=== PATIENT | female | born 1955 | race Caucasian/White ===

== ENCOUNTER 2018-10-13 17:41 | Inpatient (IN) ==
[2018-10-13] MEDS ORDERED: DiphenhydrAMINE HCL 50 MG/ML VIAL IV STA ×2 (18:41→21:51)
[2018-10-13 19:00] LABS: Basophils # (auto) 0.01 K/uL (0-0.2); Basophils % (auto) 0.1 %; Eosinophils # (auto) 0.15 K/uL (0-0.5); Eosinophils % (auto) 1.9 %; Hematocrit (blood only) 29.4 % (37-47); Hemoglobin 9.5 g/dL (12.0-16.0); Immature Granulocytes # (auto) 0.02 K/uL (0.00-0.02); Immature Granulocytes % (auto) 0.3 %; Lymphocytes % (auto) 20.2 %; Mean Corpuscular Hgb Conc 32.3 g/dL (32-36); Mean Corpuscular Volume 89.4 fL (80-100); Mean Platelet Volume 7.5 fL (7.4-10.4); Monocytes # (auto) 0.25 K/uL (0.11-0.59); Monocytes % (auto) 3.2 %; Neutrophils # (auto) 5.89 K/uL (1.4-6.5); Neutrophils % (auto) 74.3 %; Platelet Count 466 K/uL (130-400); RDW Coefficient of Variation 14.1 % (11.5-14.5); Red Blood Count 3.29 M/uL (4.2-5.4); White Blood Count 7.92 K/uL (4.8-10.8)
[2018-10-13] MEDS ORDERED: FAMOTIDINE 20MG IV PUSH 20 MG/5 ML SYR IV STA (19:14)
[2018-10-13 19:16] LABS: BUN Creatinine Ratio 16.3 (10-20); Calcium 8.5 mg/dl (8.5-10.1); Creatinine Clr Calc Pharmacy 75.2 ml/min; Est GFR (African American) 95.4; Est GFR (Non-African American) 82.3; Potassium 3.2 mmol/L (3.5-5.1)
--- NOTE | 2018-10-13 19:25 | Emergency Department Note ---
History of Present Illness General Chief complaint: Allergic Reaction Stated complaint: ALLERGIC REACTION TO ANTIBIOTIC Time Seen by Provider: 10/13/18 18:24 History of Present Illness Maximum Pain Intensity: 4 This patient is a 63-year-old female presents to the emergency department comp laining of hives all over her face, chest and shoulders that she woke up with this morning. The patient had a bilateral knee replacement performed on September 27. She developed a cellulitis postoperatively. The patient initially was put on cefadroxil. She developed an allergic reaction with hives and facial swelling. She was then switched to Cipro. After having several doses of the Cipro, the hives return. She was seen in the emergency department here at [facility] on 10/11 for the same complaint. The case was discussed with orthopedics. She was treated with steroids, Benadryl and Pepcid with moderate symptomatic relief. She was discharged home on clindamycin and Bactrim. She has had 2 doses of the clindamycin, and woke up with hives this morning. She has not taken the Bactrim. She denies any shortness of breath or difficulty swallowing. Home Medications Home Medications Medication Instructions Recorded Confirmed Type albuterol sulfate 0 mg INHALATION Q4H PRN 10/11/18 10/13/18 History albuterol sulfate [Ventolin HFA] 1 puff INHALATION Q6H PRN 10/11/18 10/13/18 History aspirin 81 mg PO BID 10/11/18 10/13/18 History bupropion HCl 300 mg PO QAM 10/11/18 10/13/18 History escitalopram oxalate 20 mg PO QAM 10/11/18 10/13/18 History famotidine 20 mg PO BID 10/11/18 10/13/18 History gabapentin 600 mg PO TID 10/11/18 10/13/18 History hydrocodone-acetaminophen 1 tab PO Q4H PRN 10/11/18 10/13/18 History latanoprost 1 drp OPB HS 10/11/18 10/13/18 History levothyroxine 125 mcg PO QAM 10/11/18 10/13/18 History meloxicam 15 mg PO .HOLD PRN 10/11/18 10/13/18 History oxycodone 5 mg PO .Q4-6HRS PRN 10/11/18 10/13/18 History ranitidine HCl 300 mg PO BID 10/11/18 10/13/18 History citalopram 20 mg PO QAM 10/13/18 10/13/18 History fluticasone propionate 2 spray INTRANASAL DAILY 10/13/18 10/13/18 History Allergies Allergy/AdvReac Type Severity Reaction Status Date / Time ciprofloxacin [From Cipro] Allergy Intermediate Hives Verified 10/13/18 22:25 hydromorphone Allergy Intermediate Rash and Verified 10/13/18 22:25 itchiness meprobamate Allergy Intermediate HIVES Verified 10/13/18 22:25 omeprazole Allergy Intermediate SORES IN Verified 10/13/18 22:25 MOUTH bacitracin Allergy Unknown ITCHY, RASH Verified 10/13/18 22:25 codeine AdvReac Intermediate NAUSEA/VOMI Verified 10/13/18 22:25 TING Past Med/Surg History Medical History Lymphoma No significant active problems No significant family history Surgical History S/P cholecystectomy S/p total knee replacement, bilateral Social History Feels Safe at Home: Yes Smoking Status: Former smoker Review of Systems A total of 10 systems reviewed and were otherwise negative Physical Exam Vital Signs Vital Signs - 24 hr 10/13/18 18:00 10/13/18 20:30 10/13/18 21:48 Temperature 37.5 C Temperature Source Oral Sepsis Recent Fever Within 48 Hours No Sepsis New/Unexplained Change in Mental Status No Sepsis Action Taken by Nursing No Action Required Pulse Rate 100 H Pulse Rate [Right Finger] 98 H 91 H Respiratory Rate 20 18 18 Respiratory Effort / Characteristics Non-Labored Spontaneous Non-Labored Respiratory Depth Normal Normal Respiratory Pattern Regular Blood Pressure 132/71 Blood Pressure [Left Arm] 140/80 122/66 Blood Pressure Mean 91 Blood Pressure Mean [Left Arm] 100 84 Blood Pressure Position Sitting Pulse Oximetry 97 95 95 Oxygen Delivery Method Room Air Constitutional WD/WN, vitals as above Eyes EOM intact bilaterally ENMT external ear and nose normal, oropharynx normal No lesions in the oral mucosa. Airway patent. Uvula midline. Neck trachea midline No stridor Respiratory normal respiratory effort, lungs clear to auscultation Cardiovascular RRR, no murmur, no edema Gastrointestinal (Abdomen) normal bowel sounds, soft, nontender, no hepatosplenomegaly Musculoskeletal Erythema and edema noted particularly to the right knee. Incision appears to be intact. No purulent drainage. Skin no rashes, warm and dry Extensive erythematous, blanching, urticaria noted particularly to the trunk, posterior neck and to a lesser extent the extremities. Neurologic Alert and oriented x3. No focal motor deficits. Psychiatric Acting appropriately Course Patient was seen and examined Vital signs including blood pressure were reviewed medications list was verified with patient Labs were obtained, and a saline lock was established Benadryl 25 mg IV and Solu-Medrol 125 mg IV were ordered. She was also put on a monitor. Pepcid 20 mg IV ordered. The case was discussed with my supervising physician who is in agreement with my plan She was ordered vancomycin IV On reassessment, the patient did not feel any relief. She was ordered an additional dose of Benadryl 25 mg IV. [facility] the patient for possible inpatient management. The patient and the patient's were in agreement with the plan. Consultations [facility] Sodium Chloride (Nss 1000ml) 1,000 mls @ 75 mls/hr IV .[id number] KAYLEN Stop: 11/13/18 00:01 Last Admin: 10/14/18 00:44 Dose: 75 mls/hr Documented by: [id number] Discontinued Medications Cetirizine HCl (Zyrtec) 10 mg PO NOW ONE Stop: 10/14/18 00:03 Last Admin: 10/14/18 00:52 Dose: 10 mg Documented by: [id number] Diphenhydramine HCl (Benadryl) 25 mg IV NOW STA Stop: 10/13/18 18:42 Last Admin: 10/13/18 19:03 Dose: 25 mg Documented by: [id number] Diphenhydramine HCl (Benadryl) 25 mg IV NOW STA Stop: 10/13/18 21:52 Last Admin: 10/13/18 22:21 Dose: 25 mg Documented by: [id number] Famotidine (Pepcid 20mg Iv Push) 20 mg in 5 mls @ 2.5 mls/min IV NOW STA Stop: 10/13/18 19:15 Last Admin: 10/13/18 19:28 Dose: 2.5 mls/min Documented by: [id number] Vancomycin HCl 1,750 mg/ (Sodium Chloride) 535 mls @ 200 mls/hr IV NOW ONE; Protocol Stop: 10/14/18 00:07 Last Admin: 10/13/18 22:32 Dose: 200 mls/hr Documented by: [id number] Methylprednisolone (Solumedrol) 125 mg IV NOW STA Stop: 10/13/18 20:11 Last Admin: 10/13/18 20:18 Dose: 125 mg Documented by: [id number] Medical Decision Making Medical Records Attestation: I reviewed the patient's medical records. Home Medications Current Medication List: was personally reviewed by me Laboratory Data Attestation: I reviewed the patient's lab results. Result diagrams: 10/13/18 18:47 10/13/18 18:47 Lab Results 10/13/18 10/13/18 Range/Units 18:47 18:47 WBC 7.92 (4.8-10.8) K/uL RBC 3.29 L (4.2-5.4) M/uL Hgb 9.5 L (12.0-16.0) g/dL Hct 29.4 L (37-47) % MCV 89.4 (80-100) fL MCH 28.9 (25-34) pg MCHC 32.3 (32-36) g/dL RDW Std Deviation 46.0 (36.4-46.3) fL RDW Coeff of Aba 14.1 (11.5-14.5) % Plt Count 466 H (130-400) K/uL MPV 7.5 (7.4-10.4) fL Immature Gran % (Auto) 0.3 % Neut % (Auto) 74.3 % Lymph % (Auto) 20.2 % [place] % (Auto) 3.2 % Eos % (Auto) 1.9 % Baso % (Auto) 0.1 % Immature Gran # (Auto) 0.02 (0.00-0.02) K/uL Neut # (Auto) 5.89 (1.4-6.5) K/uL Lymph # (Auto) 1.60 (1.2-3.4) K/uL Independence # (Auto) 0.25 (0.11-0.59) K/uL Eos # (Auto) 0.15 (0-0.5) K/uL Baso # (Auto) 0.01 (0-0.2) K/uL Sodium 142 (136-145) mmol/L Potassium 3.2 L (3.5-5.1) mmol/L Chloride 108 H (98-107) mmol/L Carbon Dioxide 29 (21-32) mmol/L Anion Gap 5.0 (3-11) BUN 12 (7-18) mg/dl Creatinine 0.76 (0.6-1.2) mg/dl Est Cr Clr Drug Dosing 75.2 ml/min Est GFR ( Amer) 95.4 Est GFR (Non-Af Amer) 82.3 BUN/Creatinine Ratio 16.3 (10-20) Glucose 87 (70-99) mg/dl Calcium 8.5 (8.5-10.1) mg/dl Blood Pressure Blood Pressure Findings: Elevated blood pressure MDM Narrative Differential diagnosis: Adverse versus allergic reaction, angioedema, anaphylaxis, infectious etiology, sepsis, among other This patient is a 63-year-old female presents the emergency department with an allergic type reaction that started today. On exam, her vitals were stable. Airway patent without any stridor or wheezing. As noted above, she has had a similar reaction to cephalosporins, Cipro and now clindamycin. At this point, it is felt that her outpatient p.o. antibiotic choices are fairly limited. Also, she had no relief with the medical management in the emergency department. For these reasons, it was felt that hospitalist consultation was warranted. The patient was in agreement. Impression & Plan Allergic reaction Discharge Plan Visit Data *Final* Discharge Date/Time: 10/13/18 23:41 Chief Complaint: Allergic Reaction Stated Complaint: ALLERGIC REACTION TO ANTIBIOTIC ED Provider: Quinton Chatman ED Midlevel Provider: Sandra Ramírez Discharge Problem: Allergic reaction Patient Disposition: Admitted As Inpatient Discharge Instructions Interventions: ED Discharge Assessment Last Done: 10/13/18 23:41 Discharge Problem: Allergic reaction Qualifiers: Encounter type: subsequent encounter Qualified Code(s): T78.40XD - Allergy, unspecified, subsequent encounter
[2018-10-13] MEDS ORDERED: methylPREDNISolone 125 MG/2 ML VIAL IV STA (20:10)
[2018-10-13] MEDS ORDERED: VANCOMYCIN HCL 1,750 MG in SODIUM CHLORIDE 0.9% 500 ML IV ONE (21:27)
[2018-10-13] MEDS ORDERED: VANCOMYCIN CONSULT ACTIVE PRN (21:27)
--- NOTE | 2018-10-13 21:41 | Emergency Department Note ---
ED Visit Note The patient was seen and examined with Sandra Ramírez PA-C. I agree with the history, physical and findings. Please see the note for disposition and details. The patient has had allergic type reaction to cephalosporin, quinolones, and clindamycin. Despite treatment for this reaction she still is symptomatic. She needs antibiotics due to the infection in her right knee wound. IV vancomycin was ordered. [facility]. .
--- NOTE | 2018-10-13 23:57 | History and Physical Report ---
DATE OF ADMISSION: 10/13/2018 CHIEF COMPLAINT: Allergic reaction. HISTORY OF PRESENT ILLNESS: This is a 63-year-old female with past medical history significant for follicular lymphoma, in remission, hypothyroidism, history of chronic rhinitis, esophagitis, osteoarthritis, cervical spine degeneration, depression, who recently had bilateral knee surgery, comes with allergic reaction. The patient had bilateral total knee replacement done on September [address] Graf at orthopedic surgery in [place]. The patient was prescribed cephalosporins for right knee cellulitis and she developed rash and she was switched to Cipro. She took Cipro for 4 days and she developed again rash and lip swelling and came to the ER on October 11, she was treated with steroids, Benadryl and famotidine and ER physician talked to the orthopedic doctor and was prescribed clindamycin and Bactrim and discharged to follow with orthopedics, and she did not took Bactrim, but with couple dose of clindamycin, developed again hives on the face, neck, itching and she came to the ER today, again received Solu-Medrol, Benadryl and famotidine, symptoms are improving. Cellulitis of right knee is improving. Because of multiple allergies, IV vancomycin was started in the ER. The patient is resting comfortable and hemodynamically stable. She says since last 1 week she has subjective fevers in the nighttime, she occasionally gets night sweats. She says her lymphoma is in remission. Denies any headache, no dizziness. No blurred visions. No earache, no runny nose, no sore throat, no difficulty swallowing. No nausea, no vomiting, no abdominal pain, no chest pain, no shortness of breath. No cough. She is constipated. No blood in the stools, no black stools. No burning, micturition or hematuria. No swelling of the legs. Had some lip swelling but no swelling of the tongue. ALLERGIES: BACTRIM, CODEINE, MEPROBAMATE, OMEPRAZOLE, CEPHALOSPORIN, CIPROFLOXACIN, POSSIBLE CLINDAMYCIN. PAST MEDICAL HISTORY: As mentioned above. PAST SURGICAL HISTORY: Colonoscopy, EGD with biopsy, EGD with endoscopic ultrasound, laparoscopic biopsy of intra-abdominal lymph node, laparoscopic cholecystectomy, laparoscopic mesenteric lymph node biopsy, appendectomy, removal of ovary ducts, tonsillectomy, total abdominal hysterectomy with removal of tubes. MEDICATIONS: The patient is on latanoprost 0.005% ophthalmic solution 1 drop in each eye at bedtime, gabapentin 600 mg p.o. t.i.d., Zantac 300 mg p.o. b.i.d., meloxicam, Celexa 20 mg p.o. daily, multivitamins 1 tablet daily, levothyroxine 112 mcg daily, Wellbutrin XL 300 mg p.o. daily, albuterol nebs q. 4 hours p.r.n. FAMILY HISTORY: Significant for father has squamous cell cancer of throat, heart disorder, hypertension, stroke. Mother has diabetes, hypertension. SOCIAL HISTORY: No smoking history. Alcohol rarely. No drug use. , lives with her . REVIEW OF SYMPTOMS: As per HPI. Rest of review of systems negative. PHYSICAL EXAMINATION: GENERAL: The patient is of moderate build, not in acute distress. VITAL SIGNS: Temperature 37.5, pulse 91, respiratory rate 18, blood pressure ____/66, oxygen 95% room air. HEENT: No pallor, no icterus. Pupils equal, round, and reactive to light. NECK: No JVD, no neck masses, no carotid bruit. CARDIOVASCULAR: S1, S2 heard, regular rate and rhythm, no murmur, no gallop. RESPIRATORY SYSTEM: Normal AP diameter. No wheezing, no crackles. ABDOMEN: Soft, bowel sounds present. Nontender, nondistended. CENTRAL NERVOUS SYSTEM: Cranial nerves II-XII grossly nonfocal. EXTREMITIES: Bilateral total knee replacement, right knee has some mild erythematous changes. LABORATORY DATA: WBC 7.9, hemoglobin 9.5, hematocrit 29.4, platelets 466. Sodium 142, potassium 3.2, chloride 108, bicarbonate 29, BUN 12, creatinine 0.7, serum glucose 87, calcium 8.5. ASSESSMENT AND PLAN: This is a 63-year-old female who presents with allergic reaction. 1. Allergic reaction: She is having multiple allergies with rash since starting on antibiotics for right knee cellulitis post knee arthoplasty. Initially treated with cephalosporin then ciprofloxacin, then clindamycin again e developed lip swelling and and hives in the face, neck and in the body, treated for allergic reaction with IV Solu-Medrol, IV Benadryl and IV Pepcid in the ER. We will continue with p.o. prednisone, Zyrtec and Pepcid and monitor on the Med/Surg tele. 2. Right knee cellulitis post bilateral total knee replacement, will consult orthopedics for further management and also ID for p.o. antibiotics on discharge if needed. 3. History of lymphoma follicular, in remission as per patient, follow with Heme/Onc. 4. History of hypothyroidism. Continue Synthroid. 5. History of depression. Continue home medications. 6. Deep venous thrombosis prophylaxis, sequential compression devices for now. 5. Disposition. Closely monitor in the Med/Surg tele. Level 1 full code. MTDD
[2018-10-14] MEDS ORDERED: ALBUTEROL 0.083% NEBU SOLN 3 ML VIAL NEB PRN (00:02)
[2018-10-14] MEDS ORDERED: CETIRIZINE HCL 10 MG TABLET PO ONE (00:02)
[2018-10-14] MEDS ORDERED: ONDANSETRON INJ 2 MG/ML 2 ML VIAL IV PRN (00:02)
[2018-10-14] MEDS: SODIUM CHLORIDE 0.9% 1000ML 1,000 ML IV SCH ×2 (00:44→13:35)
[2018-10-14] MEDS: ACETAMINOPHEN 325 MG TAB PO PRN (01:52)
[2018-10-14] MEDS ORDERED: PNEUMOCOCCAL ADMINISTRATION CHARGE ONE (04:30)
[2018-10-14] MEDS ORDERED: PNEUMOCOCCAL POLYSACCHARIDES 25 MCG/0.5 ML VIAL/SYR IM ONE (04:30)
[2018-10-14 05:31] LABS: Basophils # (auto) 0.01 K/uL (0-0.2); Basophils % (auto) 0.1 %; Eosinophils # (auto) 0.01 K/uL (0-0.5); Eosinophils % (auto) 0.1 %; Hematocrit (blood only) 29.7 % (37-47); Hemoglobin 9.5 g/dL (12.0-16.0); Immature Granulocytes # (auto) 0.03 K/uL (0.00-0.02); Immature Granulocytes % (auto) 0.3 %; Lymphocytes # (auto) 0.75 K/uL (1.2-3.4); Mean Corpuscular Volume 90.5 fL (80-100); Mean Platelet Volume 7.6 fL (7.4-10.4); Monocytes # (auto) 0.09 K/uL (0.11-0.59); Neutrophils # (auto) 8.45 K/uL (1.4-6.5); Neutrophils % (auto) 90.5 %; Platelet Count 491 K/uL (130-400); RDW Coefficient of Variation 14.2 % (11.5-14.5); Red Blood Count 3.28 M/uL (4.2-5.4); White Blood Count 9.34 K/uL (4.8-10.8)
[2018-10-14] MEDS: LEVOTHYROXINE SODIUM 125 MCG TABLET PO SCH (05:58)
[2018-10-14 06:06] LABS: BUN Creatinine Ratio 14.9 (10-20); Calcium 8.6 mg/dl (8.5-10.1); Creatinine Clr Calc Pharmacy 75.3 ml/min; Est GFR (African American) 95.4; Est GFR (Non-African American) 82.3; Magnesium 2.6 mg/dl (1.8-2.4); Potassium 3.9 mmol/L (3.5-5.1)
[2018-10-14] MEDS: ASPIRIN 81 MG ECTAB PO SCH ×2 (08:34→20:53)
[2018-10-14] MEDS: BuPROPion XL 300 MG TABCR PO SCH (08:34)
[2018-10-14] MEDS: FAMOTIDINE 20 MG TAB PO SCH ×2 (08:35→20:54)
[2018-10-14] MEDS: predniSONE 20 MG TAB PO SCH (08:35)
[2018-10-14] MEDS: GABAPENTIN 600 MG TAB PO SCH ×3 (08:36→20:54)
[2018-10-14] MEDS: FLUTICASONE PROPIONATE NA SPR 16 GM BTL SCH (08:37)
[2018-10-14] MEDS: CITALOPRAM 20 MG TAB PO SCH (08:37)
[2018-10-14] MEDS: HYDROCODONE/ACETAMOPHEN 5/325MG TAB PO PRN ×2 (08:42→16:17)
[2018-10-14] MEDS ORDERED: ESCITALOPRAM OXALATE 20 MG TAB PO SCH (09:00)
[2018-10-14] MEDS ORDERED: BuPROPion XL 300 MG TABCR PO SCH (09:00)
[2018-10-14] MEDS ORDERED: BuPROPion XL 150 MG TABCR PO SCH (09:00)
--- NOTE | 2018-10-14 10:23 | Infectious Disease Consult ---
Date of Consultation October 14, 2018 Assessment & Plan (1) Cellulitis of right leg: Patient with right leg cellulitis following knee surgery, responding to oral antibiotics but with allergic reaction to several different classes. For now, patient should be continued on IV vancomycin. Oral antibiotic choice is becoming limited and may require short course of home IV antibiotics. Will await cultures and follow. (2) Allergic reaction: History of Present Illness Reason for Consultation: Right knee cellulitis, multiple antibiotic allergies Attending Physician: Gerardo Sepulveda MD History of Present Illness 63-year-old female status post recent bilateral knee replacements, who developed evidence of right knee cellulitis recently, was given cefadroxil but developed diffuse erythematous pruritic rash. Was then placed on ciprofloxacin but then developed hives, changed to clindamycin but developed worsening large hives prompting return to the emergency room and admission to the hospital. She has been started on vancomycin, has tolerated so far, and rash is starting to resolve. She had fever and chills with her knee infection, but noted improvement while on oral antibiotics despite allergic reaction. Pain in knee minimal at present. Blood cultures are pending. Allergies Allergy/AdvReac Type Severity Reaction Status Date / Time ciprofloxacin [From Cipro] Allergy Intermediate Hives Verified 10/13/18 22:25 hydromorphone Allergy Intermediate Rash and Verified 10/13/18 22:25 itchiness meprobamate Allergy Intermediate HIVES Verified 10/13/18 22:25 omeprazole Allergy Intermediate SORES IN Verified 10/13/18 22:25 MOUTH bacitracin Allergy Unknown ITCHY, RASH Verified 10/13/18 22:25 codeine AdvReac Intermediate NAUSEA/VOMI Verified 10/13/18 22:25 TING Home Medications Home Medications Medication Instructions Recorded Confirmed Type albuterol sulfate 0 mg INHALATION Q4H PRN 10/11/18 10/13/18 History albuterol sulfate [Ventolin HFA] 1 puff INHALATION Q6H PRN 10/11/18 10/13/18 History aspirin 81 mg PO BID 10/11/18 10/13/18 History bupropion HCl 300 mg PO QAM 10/11/18 10/13/18 History famotidine 20 mg PO BID 10/11/18 10/13/18 History gabapentin 600 mg PO TID 10/11/18 10/13/18 History hydrocodone-acetaminophen 1 tab PO Q4H PRN 10/11/18 10/13/18 History latanoprost 1 drp OPB HS 10/11/18 10/13/18 History levothyroxine 125 mcg PO QAM 10/11/18 10/13/18 History meloxicam 15 mg PO .HOLD PRN 10/11/18 10/13/18 History oxycodone 5 mg PO .Q4-6HRS PRN 10/11/18 10/13/18 History ranitidine HCl 300 mg PO BID 10/11/18 10/13/18 History citalopram 20 mg PO QAM 10/13/18 10/13/18 History fluticasone propionate 2 spray INTRANASAL DAILY 10/13/18 10/13/18 History Patient History Medical History Lymphoma No significant active problems No significant family history Surgical History S/P cholecystectomy S/p total knee replacement, bilateral Social History Preferred Language: Urdu Communication Ability: Effective [employer] Distribution Center Required: Yes Beliefs That Will Affect Care: None Current Living Situation: Spouse Other Information That Helps Us Care for You: No Feels Safe at Home: Yes Safety Concerns: Feels Safe At This Time Smoking Status: Never smoker Hx Alcohol Use: No Hx Substance Use: No Review of Systems Review of Systems: All systems reviewed & are unremarkable except as noted in HPI & below Physical Exam Constitutional: WD/WN, vitals as above comfortable; no acute distress Eyes: PERRL, conjunctivae normal, anicteric sclerae ENMT: external ear and nose normal, oropharynx normal Neck: trachea midline, no thyromegaly neck nontender Respiratory: normal respiratory effort, lungs clear to auscultation normal percussion; does not use accessory muscles Cardiovascular: Rate/Rhythm: regular rate and regular rhythm Heart Sounds: normal S1 and normal S2; no gallop, no murmur and no cardiac rub Vessels: normal peripheral pulses; no JVD Gastrointestinal (Abdomen): normal bowel sounds, soft, nontender, no hepatosplenomegaly Musculoskeletal: no cyanosis or clubbing, extremities motor strength 5/5 Spine: thoracic spine normal to inspection and lumbar spine normal to inspection; no cervical spinal tenderness Skin: normal turgor, + rash (Fading urticarial rash) and + erythema (Mild around right knee) Neurologic: patellar DTR's 2+ bilat, sensation intact no focal motor deficits Psychiatric: A+Ox3, euthymic affect Orientation: cooperative Lymphatic: no cervical or axillary lymphadenopathy no inguinal lymphadenopathy Results & Data Vital Signs (Past 12 Hours) Vital Signs Temp Pulse Pulse Resp BP BP Pulse Ox 10/14/18 08:00 36.9 C 84 20 115/70 93 10/14/18 07:14 88 10/14/18 03:05 37.1 C 89 16 124/70 94 10/14/18 00:30 93 H 10/14/18 00:11 37.1 C 92 H 16 123/71 96 10/13/18 23:41 92 H 119/79 96 10/13/18 22:33 100 H 18 133/94 95 Laboratory Results Short CBC 10/13/18 10/14/18 Range/Units 18:47 05:14 WBC 7.92 9.34 (4.8-10.8) K/uL Hgb 9.5 L 9.5 L (12.0-16.0) g/dL Hct 29.4 L 29.7 L (37-47) % Plt Count 466 H 491 H (130-400) K/uL BMP 10/13/18 10/14/18 18:47 05:14 Sodium 142 143 Potassium 3.2 L 3.9 D Chloride 108 H 109 H Carbon Dioxide 29 30 BUN 12 11 Creatinine 0.76 0.76 Glucose 87 145 H Calcium 8.5 8.6 (1) Allergic reaction Encounter type: subsequent encounter Qualified Code(s): T78.40XD - Allergy, unspecified, subsequent encounter
[2018-10-14] MEDS: VANCOMYCIN HCL 1,500 MG in SODIUM CHLORIDE 0.9% 500 ML IV SCH ×2 (12:03→22:20)
--- NOTE | 2018-10-14 12:37 | Pharmacy Report ---
Pharmacy Abx Dose Short Note - Date of Service October 14, 2018 - Assessment & Plan Assessment * 63 year old F admitted 10/13 PM after allergic reactions to multiple recent outpatient antibiotics (cephalosporin then ciprofloxacin then clindamycin) for treatment of cellulitis near recent TKA incision site. * PMH * B/L TKA September 27 in [place] * Follicular lymphoma in remission * Antibiotics - Vancomycin day 1 (will not count 10/13 as day 1 as vancomycin was administered at 2232) * ID consult - continue vancomycin * Renal - SCr stable and at/near baseline Vancomycin * t1/2 10.4 hr (based on population PK estimate and eCrCL of 75 mL/min) * 21 mg/kg administered yesterday PM. Will order ongoing close to estimated t1/2 at 18 mg/kg * Trough prior to 4th overall dose Plan * Vancomycin 1500 mg IV q12h * Trough 10/15 @ 0930 Pharmacy will continue to follow and will adjust dose/frequency as necessary. Thank you.
--- NOTE | 2018-10-14 16:49 | Orthopedic Consultation ---
Date of Consultation October 14, 2018 Assessment & Plan (1) Cellulitis of right leg: Postop day 17 status post bilateral total knee arthroplasties by Dr. Graf. Overall, her cellulitis is improving quite well. Plan to continue IV antibiotics for now. Dr. Lopez has been consulted to assist with choosing her antibiotics due to multiple allergies and to select po options. She can start PT and OT protocols, weightbearing as tolerated on both knees at this time. Gentle range of motion. Continue DVT prophylaxis with aspirin twice daily, SCDs, ISABELLA hose. History of Present Illness Reason for Consultation: Cellulitis Right knee. Attending Physician: Gerardo Sepulveda MD History of Present Illness Patient is a 63-year-old female who underwent bilateral total knee arthroplasty by Dr. Graf on 09/27/2018. Patient states that she was progressing well and was discharged to [facility] for further PT protocols. She states while there, she began developing redness around both knees right greater than left. She states that she was developing a low-grade temperature and to continue to watch her knees. She then followed up in the office with Dr. Graf staff. At that time, she was started on Duricef antibiotic of which she had an allergic reaction to. This was then changed to Cipro which continued the reaction. She was then changed to clindamycin which was no better. At that point in time she was admitted here due to her allergic allergy reactions and her increasing cellulitis of her Right knee. We have been asked to see her for her cellulitis of her knee. Allergies Allergy/AdvReac Type Severity Reaction Status Date / Time ciprofloxacin [From Cipro] Allergy Intermediate Hives Verified 10/13/18 22:25 hydromorphone Allergy Intermediate Rash and Verified 10/13/18 22:25 itchiness meprobamate Allergy Intermediate HIVES Verified 10/13/18 22:25 omeprazole Allergy Intermediate SORES IN Verified 10/13/18 22:25 MOUTH bacitracin Allergy Unknown ITCHY, RASH Verified 10/13/18 22:25 codeine AdvReac Intermediate NAUSEA/VOMI Verified 10/13/18 22:25 TING Home Medications Home Medications Medication Instructions Recorded Confirmed Type albuterol sulfate 0 mg INHALATION Q4H PRN 10/11/18 10/13/18 History albuterol sulfate [Ventolin HFA] 1 puff INHALATION Q6H PRN 10/11/18 10/13/18 History aspirin 81 mg PO BID 10/11/18 10/13/18 History bupropion HCl 300 mg PO QAM 10/11/18 10/13/18 History famotidine 20 mg PO BID 10/11/18 10/13/18 History gabapentin 600 mg PO TID 10/11/18 10/13/18 History hydrocodone-acetaminophen 1 tab PO Q4H PRN 10/11/18 10/13/18 History latanoprost 1 drp OPB HS 10/11/18 10/13/18 History levothyroxine 125 mcg PO QAM 10/11/18 10/13/18 History meloxicam 15 mg PO .HOLD PRN 10/11/18 10/13/18 History oxycodone 5 mg PO .Q4-6HRS PRN 10/11/18 10/13/18 History ranitidine HCl 300 mg PO BID 10/11/18 10/13/18 History citalopram 20 mg PO QAM 10/13/18 10/13/18 History fluticasone propionate 2 spray INTRANASAL DAILY 10/13/18 10/13/18 History Patient History Medical History Lymphoma No significant active problems No significant family history Surgical History S/P cholecystectomy S/p total knee replacement, bilateral Social History Preferred Language: [place] Communication Ability: Effective Claim Processor Required: Yes Beliefs That Will Affect Care: None Current Living Situation: Spouse Other Information That Helps Us Care for You: No Feels Safe at Home: Yes Safety Concerns: Feels Safe At This Time Smoking Status: Never smoker Hx Alcohol Use: No Hx Substance Use: No Physical Exam Physical Exam: Patient is currently lying in bed awake and alert and oriented. She has no overt complaints at this time., She has 2 incisions that are well approximated and healing well bilaterally on the knees. The right knee has a little bit more swelling than the left knee. The right knee incision does have some small scabs on the incision. It also has some slight erythema noted around the incision at this time. This erythema is minimal and it does not appear to travel proximally or distally. The left knee looks almost benign with only slight erythema noted around the medial/proximal portion of the incision. No drainage is noted from either wound at this time. On palpation she has mild tenderness over both knees. I can take her through gentle passive range of motion without causing much in the way of pain for her for both knees. Both knees feel stable concerning the collateral ligaments. Calves are soft nontender. Neurovascular intact. Toes are mobile. Results & Data Vital Signs (Past 12 Hours) Vital Signs Temp Pulse Pulse Resp BP Pulse Ox 10/14/18 15:22 36.8 C 85 18 115/70 94 10/14/18 12:15 36.9 C 103 H 20 135/75 95 10/14/18 08:00 36.9 C 84 20 115/70 93 10/14/18 07:14 88
[2018-10-14] MEDS ORDERED: DiphenhydrAMINE HCL 50 MG/ML VIAL IV STA (17:43)
[2018-10-14] MEDS ORDERED: DOCUSATE SODIUM 100 MG CAP PO ONE (17:44)
--- NOTE | 2018-10-14 19:05 | Hospitalist Progress Note ---
Date of Service October 14, 2018 Assessment & Plan (1) Allergic reaction: -This is a 63-year-old female who presents with allergic reaction which began after right knee cellulitis post knee arthoplasty. -presumably there may be allergic reaction from antibiotics: cephalosporin then ciprofloxacin, then clindamycin -during this hospital stay patient has been on vancomycin; however as of 10/14/18 evening patient again with more rash outbreaks and seen on the face above left eyelid -it is unclear whether rashes can be associated with antibiotics or perhaps from another reaction to different medication or whether this is idiopathic -will continue p.o. prednisone, Zyrtec and Pepcid, will give Benadryl IV 12.5 mg TID prn for rash or allergic reaction right knee cellulitis post knee arthoplasty -currently on IV vancomycin -will send blood cultures, ESR, CRP History of lymphoma follicular, in remission as per patient -follow with Heme/Oncology History of hypothyroidism. Continue Synthroid. History of depression. Continue home medication of bupropion and citalopram Continue DVT prophylaxis with aspirin twice daily, SCDs, ISABELLA hodge Subjective Patient was seen and examined in afternoon and while with vancomycin running, she did not have any redness of the face. then she had some rashes to the face and above left eye. patient feeling itchy. Nurse about to give Benadryl. Patient denies chest pain or shortness of breath. denies abdomen pain. Physical Exam Constitutional: WD/WN, vitals as above Eyes: some rashes to the face and above left eye Neck: trachea midline, no thyromegaly Respiratory: normal respiratory effort, lungs clear to auscultation Cardiovascular: Rate/Rhythm: regular rate and regular rhythm Gastrointestinal (Abdomen): normal bowel sounds, soft, nontender, no hepatosplenomegaly Musculoskeletal: Head/Neck/Chest: normocephalic and head atraumatic bilateral knee scars from previous surgery. right knee is mildly more warmer than left knee. bilateral lower extremity edema Neurologic: PERRL, EOMI, accommodation nl, no face palsy, no dysarthria C N's II-XI intact bilaterally Psychiatric: A+Ox3, euthymic affect Results & Data Vital Signs (Past 12 Hours) Vital Signs Temp Pulse Pulse Resp BP Pulse Ox 10/14/18 16:00 92 H 10/14/18 15:22 36.8 C 85 18 115/70 94 10/14/18 12:15 36.9 C 103 H 20 135/75 95 10/14/18 08:00 36.9 C 84 20 115/70 93 10/14/18 07:14 88 (1) Allergic reaction Encounter type: subsequent encounter Qualified Code(s): T78.40XD - Allergy, unspecified, subsequent encounter
[2018-10-14] MEDS: LATANOPROST 0.005% OP SOLN 2.5 ML BTL OPB SCH (20:52)
[2018-10-14] MEDS: DOCUSATE SODIUM 100 MG CAP PO SCH (20:53)
[2018-10-14] MEDS: CETIRIZINE HCL 10 MG TABLET PO SCH (20:55)
[2018-10-14] MEDS: DiphenhydrAMINE HCL 50 MG/ML VIAL IV PRN (23:42)
[2018-10-15] MEDS: LEVOTHYROXINE SODIUM 125 MCG TABLET PO SCH (06:28)
[2018-10-15] MEDS: CITALOPRAM 20 MG TAB PO SCH (08:28)
[2018-10-15] MEDS: DOCUSATE SODIUM 100 MG CAP PO SCH ×2 (08:28→21:21)
[2018-10-15] MEDS: ASPIRIN 81 MG ECTAB PO SCH ×2 (08:29→21:18)
[2018-10-15] MEDS: FLUTICASONE PROPIONATE NA SPR 16 GM BTL SCH (08:29)
[2018-10-15] MEDS: GABAPENTIN 600 MG TAB PO SCH ×3 (08:30→21:18)
[2018-10-15] MEDS: FAMOTIDINE 20 MG TAB PO SCH ×2 (08:30→21:18)
[2018-10-15] MEDS: predniSONE 20 MG TAB PO SCH (08:30)
[2018-10-15] MEDS: BuPROPion XL 300 MG TABCR PO SCH (08:31)
[2018-10-15] MEDS: ACETAMINOPHEN 325 MG TAB PO PRN ×2 (08:32→16:37)
[2018-10-15] MEDS: DiphenhydrAMINE HCL 50 MG/ML VIAL IV PRN ×2 (08:33→16:33)
[2018-10-15] MEDS ORDERED: VANCOMYCIN TROUGH ONE (09:30)
[2018-10-15 09:32] LABS: Basophils # (auto) 0.01 K/uL (0-0.2); Basophils % (auto) 0.1 %; Eosinophils # (auto) 0.19 K/uL (0-0.5); Eosinophils % (auto) 1.9 %; Hematocrit (blood only) 28.6 % (37-47); Hemoglobin 9.3 g/dL (12.0-16.0); Immature Granulocytes # (auto) 0.06 K/uL (0.00-0.02); Immature Granulocytes % (auto) 0.6 %; Lymphocytes # (auto) 3.22 K/uL (1.2-3.4); Lymphocytes % (auto) 31.9 %; Mean Corpuscular Hgb Conc 32.5 g/dL (32-36); Mean Corpuscular Volume 89.7 fL (80-100); Mean Platelet Volume 7.7 fL (7.4-10.4); Monocytes # (auto) 0.63 K/uL (0.11-0.59); Monocytes % (auto) 6.2 %; Neutrophils # (auto) 5.98 K/uL (1.4-6.5); Neutrophils % (auto) 59.3 %; Platelet Count 472 K/uL (130-400); RDW Coefficient of Variation 14.2 % (11.5-14.5); RDW Standard Deviation 46.9 fL (36.4-46.3); Red Blood Count 3.19 M/uL (4.2-5.4); White Blood Count 10.09 K/uL (4.8-10.8)
[2018-10-15 10:03] LABS: BUN Creatinine Ratio 13.4 (10-20); Calcium 8.4 mg/dl (8.5-10.1); Est GFR (African American) 83.3; Est GFR (Non-African American) 71.9; Potassium 3.2 mmol/L (3.5-5.1)
[2018-10-15 10:08] LABS: Albumin Globulin Ratio 0.9 (0.9-2); Bilirubin,Total 0.3 mg/dl (0.2-1); Globulin 3.2 gm/dl (2.5-4.0); Total Protein 6.2 gm/dl (6.4-8.2)
[2018-10-15] MEDS: VANCOMYCIN HCL 1,500 MG in SODIUM CHLORIDE 0.9% 500 ML IV SCH ×2 (10:14→21:30)
[2018-10-15] MEDS ORDERED: POTASSIUM CHLORIDE 20 MEQ TABCR PO STA (10:40)
[2018-10-15] MEDS: OXYCODONE HCL IR 5 MG TAB (IMMEDIATE RELEASE) PO PRN ×2 (11:37→18:00)
--- NOTE | 2018-10-15 12:02 | Pharmacy Report ---
Pharmacy Abx Dose Short Note - Date of Service October 15, 2018 - Assessment & Plan Assessment * 63 year old F admitted 10/13 PM after allergic reactions to multiple recent outpatient antibiotics (cephalosporin then ciprofloxacin then clindamycin) for treatment of cellulitis near recent TKA incision site. * PMH * B/L TKA September 27 in [place] * Follicular lymphoma in remission * Antibiotics - Vancomycin day 2 (will not count 10/13 as day 1 as vancomycin was administered at 2232) * ID consult - continue vancomycin * Renal - SCr stable and at/near baseline Vancomycin * Goal vancomycin trough 15-20 mcg/mL * Trough of 13.7 mcg/mL is subtherapeutic * Dose in mg/kg already at the upper end of typical range (18 mg/kg) therefore will increase vancomycin trough by shortening interval between vancomycin doses * Trough prior to 4th dose of new regimen (counting final dose of previous regimen as dose #1 as dose in mg is not changing) Plan * Vancomycin 1500 mg IV q10h * Trough 10/16 @ 1530 Pharmacy will continue to follow and will adjust dose/frequency as necessary. Thank you.
--- NOTE | 2018-10-15 16:52 | Hospitalist Progress Note ---
Date of Service October 15, 2018 Assessment & Plan (1) Allergic reaction: -This is a 63-year-old female who presents with allergic reaction which began after right knee cellulitis post knee arthoplasty. -presumably there may be allergic reaction from antibiotics: cephalosporin then ciprofloxacin, then clindamycin -during this hospital stay patient has been on vancomycin; however as of 10/14/18 evening patient again with more rash outbreaks and seen on the face above left eyelid; it is unclear whether rashes can be associated with antibiotics or perhaps from another reaction to different medication or whether this is idiopathic -10/15/18: facial rash is resolved but patient have some hive under the chin and of the back - continue oral prednisone, Zyrtec and Pepcid -continue Benadryl IV 12.5 mg TID prn for rash or allergic reaction Postoperative right knee cellulitis, a complication of care -CRP elevated, ESR is normal -blood cultures from 10/14/18 is pending -currently on IV vancomycin, and to continue mild hypokalemia -serum potassium 3.2 and patient given oral potassium History of lymphoma follicular, in remission as per patient -follow with Heme/Oncology History of hypothyroidism Continue Synthroid. History of depression Continue home medication of bupropion and citalopram Continue DVT prophylaxis with aspirin twice daily, SCDs, ISABELLA hose Subjective facial rash is resolved but patient have some hive under the chin and of the ba ck. patient denies swelling of tongue or mouth. no shortness of breath. breathing on room air. no chest pain. right knee with more warmth than left knee Physical Exam Constitutional: WD/WN, vitals as above Eyes: PERRL, conjunctivae normal, anicteric sclerae EOM intact bilaterally ENMT: external ear and nose normal, oropharynx normal Neck: trachea midline, no thyromegaly Respiratory: normal respiratory effort, lungs clear to auscultation Cardiovascular: Rate/Rhythm: regular rate and regular rhythm Gastrointestinal (Abdomen): normal bowel sounds, soft, nontender, no hepatosplenomegaly Musculoskeletal: Head/Neck/Chest: normocephalic and head atraumatic Skin: facial rash is resolved but patient have some hive under the chin and of the back, right knee with more warmth than left knee Neurologic: PERRL, EOMI, accommodation nl, no face palsy, no dysarthria CN's II-XI intact bilaterally Psychiatric: A+Ox3, euthymic affect Results & Data Vital Signs (Past 12 Hours) Vital Signs Temp Pulse Pulse Resp BP Pulse Ox 10/15/18 15:07 37.3 C 87 18 122/72 97 10/15/18 11:48 36.8 C 86 18 119/79 95 10/15/18 08:00 91 H 10/15/18 07:24 36.9 C 77 18 127/78 97 (1) Allergic reaction Encounter type: subsequent encounter Qualified Code(s): T78.40XD - Allergy, unspecified, subsequent encounter
--- NOTE | 2018-10-15 20:01 | Infectious Disease Progress Nt ---
Date of Service October 15, 2018 Assessment & Plan (1) Cellulitis of right leg: Patient with right leg cellulitis following knee surgery, responding to oral antibiotics but with allergic reaction to several different classes. For now, patient should be continued on IV vancomycin. Oral antibiotic choice is becoming limited and may require short course of home IV antibiotics. Length to be determined by clinical response. (2) Allergic reaction: Subjective Patient seen in follow-up for knee infection following the surgery. Continues with allergic type reaction, now on steroids and antihistamines. No worsening knee symptoms. No fever or chills. Review of Systems Review of Systems: All systems reviewed & are unremarkable except as noted in HPI & below Physical Exam Constitutional: WD/WN, vitals as above comfortable; no acute distress Eyes: PERRL, conjunctivae normal, anicteric sclerae ENMT: external ear and nose normal, oropharynx normal Neck: trachea midline, no thyromegaly neck nontender Respiratory: normal respiratory effort, lungs clear to auscultation normal percussion; does not use accessory muscles Cardiovascular: Rate/Rhythm: regular rate and regular rhythm Heart Sounds: normal S1 and normal S2; no gallop, no murmur and no cardiac rub Vessels: normal peripheral pulses; no JVD Gastrointestinal (Abdomen): normal bowel sounds, soft, nontender, no hepato splenomegaly Musculoskeletal: no cyanosis or clubbing, extremities motor strength 5/5 Spine: thoracic spine normal to inspection and lumbar spine normal to inspection; no cervical spinal tenderness Skin: normal turgor, + rash (Fading urticarial rash) and + erythema (Mild around right knee) Neurologic: patellar DTR's 2+ bilat, sensation intact no focal motor deficits Psychiatric: A+Ox3, euthymic affect Orientation: cooperative Lymphatic: no cervical or axillary lymphadenopathy no inguinal lymphadenopathy Results & Data Vital Signs (Past 12 Hours) Vital Signs Temp Pulse Pulse Resp BP Pulse Ox 10/15/18 19:25 36.5 C 78 20 138/75 97 10/15/18 17:47 105 H 10/15/18 15:07 37.3 C 87 18 122/72 97 10/15/18 11:48 36.8 C 86 18 119/79 95 10/15/18 08:00 91 H Laboratory Results Short CBC 10/15/18 Range/Units 09:20 WBC 10.09 (4.8-10.8) K/uL Hgb 9.3 L (12.0-16.0) g/dL Hct 28.6 L (37-47) % Plt Count 472 H (130-400) K/uL BMP 10/15/18 09:20 Sodium 144 Potassium 3.2 L D Chloride 110 H Carbon Dioxide 26 BUN 11 Creatinine 0.85 Glucose 89 Calcium 8.4 L Liver Function 10/15/18 Range/Units 09:20 Total Bilirubin 0.3 (0.2-1) mg/dl AST 11 L (15-37) U/L ALT 19 (12-78) U/L Alkaline Phosphatase 87 (45-117) U/L Albumin 3.0 L (3.4-5.0) gm/dl (1) Allergic reaction Encounter type: subsequent encounter Qualified Code(s): T78.40XD - Allergy, unspecified, subsequent encounter
[2018-10-15] MEDS: LATANOPROST 0.005% OP SOLN 2.5 ML BTL OPB SCH (21:19)
[2018-10-15] MEDS: CETIRIZINE HCL 10 MG TABLET PO SCH (21:46)
[2018-10-16] MEDS: DiphenhydrAMINE HCL 50 MG/ML VIAL IV PRN ×2 (00:34→23:24)
[2018-10-16] MEDS: OXYCODONE HCL IR 5 MG TAB (IMMEDIATE RELEASE) PO PRN ×2 (04:54→20:28)
[2018-10-16] MEDS: VANCOMYCIN HCL 1,500 MG in SODIUM CHLORIDE 0.9% 500 ML IV SCH (04:55)
[2018-10-16] MEDS: LEVOTHYROXINE SODIUM 125 MCG TABLET PO SCH (05:18)
[2018-10-16 06:26] LABS: Basophils # (auto) 0.01 K/uL (0-0.2); Basophils % (auto) 0.1 %; Hematocrit (blood only) 27.2 % (37-47); Hemoglobin 8.9 g/dL (12.0-16.0); Immature Granulocytes # (auto) 0.07 K/uL (0.00-0.02); Immature Granulocytes % (auto) 0.7 %; Lymphocytes # (auto) 2.94 K/uL (1.2-3.4); Lymphocytes % (auto) 29.9 %; Mean Corpuscular Hgb Conc 32.7 g/dL (32-36); Mean Corpuscular Volume 90.1 fL (80-100); Monocytes # (auto) 0.51 K/uL (0.11-0.59); Monocytes % (auto) 5.2 %; Neutrophils % (auto) 62.1 %; Platelet Count 486 K/uL (130-400); RDW Coefficient of Variation 14.3 % (11.5-14.5); Red Blood Count 3.02 M/uL (4.2-5.4); White Blood Count 9.83 K/uL (4.8-10.8)
[2018-10-16 06:59] LABS: BUN Creatinine Ratio 13.9 (10-20); Calcium 8.5 mg/dl (8.5-10.1); Creatinine Clr Calc Pharmacy 73.1 ml/min; Est GFR (Non-African American) 78.6; Potassium 2.9 mmol/L (3.5-5.1); Uric Acid 2.8 mg/dl (2.6-7.2)
[2018-10-16 07:01] LABS: Bilirubin,Total 0.3 mg/dl (0.2-1); Globulin 2.9 gm/dl (2.5-4.0); Total Protein 5.9 gm/dl (6.4-8.2)
[2018-10-16] MEDS ORDERED: POTASSIUM CHLORIDE 20 MEQ TABCR PO STA (07:08)
--- NOTE | 2018-10-16 08:11 | Orthopedic Progress Note ---
Date of Service October 16, 2018 Assessment & Plan (1) Cellulitis of right leg: Postop day 19 status post bilateral total knee arthroplasties by Dr. Graf. Overall, her cellulitis is improving quite well. Plan to continue IV antibiotics for now. Dr. Lopez has been consulted to assist with choosing her antibiotics due to multiple allergies and to select po options. She can start PT and OT protocols, weightbearing as tolerated on both knees. Gentle range of motion. Continue DVT prophylaxis with aspirin twice daily, SCDs, ISABELLA hose. Ortho will sign off at this time. F/u with Dr. Graf's office as scheduled next week. Subjective Patient seen in follow-up for knee infection following the surgery. She had b/l TKA by Dr. Graf POD#19. Knee symptoms are improving on IV antibiotics. No fever or chills. Physical Exam Physical Exam: Bilateral knee incisions c/d/i. Erythema has mostly resolved. Right knee with some scabbing along the incision. No drainage or open areas. No calf tenderness Results & Data Vital Signs (Past 12 Hours) Vital Signs Temp Pulse Pulse Resp BP Pulse Ox 10/16/18 07:53 36.7 C 79 18 131/72 91 10/16/18 03:50 36.5 C 73 18 155/79 H 98 10/16/18 02:04 84 10/15/18 23:51 37.2 C 75 20 139/76 96
[2018-10-16] MEDS: ASPIRIN 81 MG ECTAB PO SCH ×2 (08:48→20:31)
[2018-10-16] MEDS: CITALOPRAM 20 MG TAB PO SCH (08:48)
[2018-10-16] MEDS: DOCUSATE SODIUM 100 MG CAP PO SCH ×2 (08:48→20:32)
[2018-10-16] MEDS: FLUTICASONE PROPIONATE NA SPR 16 GM BTL SCH (08:49)
[2018-10-16] MEDS: GABAPENTIN 600 MG TAB PO SCH ×3 (08:49→20:33)
[2018-10-16] MEDS: FAMOTIDINE 20 MG TAB PO SCH ×2 (08:49→20:31)
[2018-10-16] MEDS: predniSONE 20 MG TAB PO SCH (08:50)
[2018-10-16] MEDS: BuPROPion XL 300 MG TABCR PO SCH (08:50)
[2018-10-16] MEDS: ACETAMINOPHEN 325 MG TAB PO PRN (08:51)
[2018-10-16] MEDS: POTASSIUM CHLORIDE / WTR 10 MEQ/100 ML PLCT IV SCH ×3 (08:52→10:43)
[2018-10-16] MEDS ORDERED: IOVERSOL 100ml IV PRN (15:04)
--- NOTE | 2018-10-16 15:22 | Hospitalist Progress Note ---
Date of Service October 16, 2018 Assessment & Plan (1) Allergic reaction: -This is a 63-year-old female who presents with allergic reaction which began after right knee cellulitis post knee arthoplasty. -presumably there may be allergic reaction from antibiotics: cephalosporin then ciprofloxacin, then clindamycin -during this hospital stay patient has been on vancomycin; however as of 10/14/18 evening patient again with more rash outbreaks and seen on the face above left eyelid; it is unclear whether rashes can be associated with antibiotics or perhaps from another reaction to different medication or whether this is idiopathic -10/15/18: facial rash is resolved but patient have some hive under the chin and of the back -rash and hives appears resolving on 10/16/18 -continue oral prednisone, Zyrtec and Pepcid -continue Benadryl IV 12.5 mg TID prn for rash or allergic reaction Postoperative right knee cellulitis, a complication of care -patient had fever x 1 week after knee surgeries; was then on cephalosporin then ciprofloxacin, then clindamycin -on this hospitalization, patient presented with no fever and generally normal WBC; CRP elevated, ESR is normal, blood cultures from 10/14/18 with no growth to date, no draining from the surgical incision scars of bilateral knee; however bilateral knees are warm to the touch with more erythema of the right knee -was placed on IV antibiotics of vancomycin on this admission -there does not appear to be many good alternatives to oral antibiotics -will send CT scan of right and left lower extremities to assess if there are any concern for infected hardware; if no evidence of hardware infection then perhaps patient may not need any antibiotics hypokalemia -10/15/18 serum potassium 3.2 and patient given oral potassium -10/16/18 serum potassium is 2.9, patient given IV and oral potassium and labs to be repeated History of lymphoma follicular, in remission as per patient -follow with Heme/Oncology History of hypothyroidism Continue Synthroid. History of depression Continue home medication of bupropion and citalopram Continue DVT prophylaxis with aspirin twice daily, SCDs, ISABELLA ayesha Subjective The rashes and hives appeared resolved today. Patient denies chest pain or shortness of breath. no abdomen pain. no vomiting. no lightheadedness. no dizziness Physical Exam Constitutional: WD/WN, vitals as above Eyes: PERRL, conjunctivae normal, anicteric sclerae EOM intact bilaterally ENMT: external ear and nose normal, oropharynx normal Neck: trachea midline, no thyromegaly Respiratory: normal respiratory effort, lungs clear to auscultation Cardiovascular: Rate/Rhythm: regular rate and regular rhythm Gastrointestinal (Abdomen): normal bowel sounds, soft, nontender, no hepatosplenomegaly Musculoskeletal: Head/Neck/Chest: normocephalic and head atraumatic bilateral knee with post-surgical scars that are warm to the touch with the right knee slightly larger than the left knee Neurologic: PERRL, EOMI, accommodation nl, no face palsy, no dysarthria CN's II-XI intact bilaterally Psychiatric: A+Ox3, euthymic affect Results & Data Vital Signs (Past 12 Hours) Vital Signs Temp Pulse Pulse Resp BP Pulse Ox 10/16/18 08:00 85 10/16/18 07:53 36.7 C 79 18 131/72 91 10/16/18 03:50 36.5 C 73 18 155/79 H 98 (1) Allergic reaction Encounter type: subsequent encounter Qualified Code(s): T78.40XD - Allergy, unspecified, subsequent encounter
[2018-10-16] MEDS ORDERED: VANCOMYCIN TROUGH ONE (15:30)
--- NOTE | 2018-10-16 15:31 | CT Scan Report ---
CT lower leg RT w con CT DOSE: 346.80 mGy.cm CLINICAL HISTORY: Right knee swelling. Pain, edema. TECHNIQUE: The patient was scanned in a dynamic helical fashion during intravenous administration of 89 cc of Optiray 320. Sagittal and coronal reformatted images were acquired. A dose lowering techniq ue was utilized adhering to the principles of ALARA. COMPARISON STUDY: X-ray study dated 10/11/2018 FINDINGS: There is a joint effusion present. There is mild anterior soft tissue edema. There is significant art ifact secondary to a total right knee arthroplasty. There are no fluid collections to indicate an abs cess. No fractures are visualized. There is three-vessel runoff to the level of the foot. No hardware abnormalities are visualized given the limitations of a CT scan and the significant artifact from th e metallic prosthesis. IMPRESSION: 1. Postsurgical changes of a total right knee arthroplasty 2. Anterior soft tissue edema 3. No acute fractures 4. Joint effusion Electronically signed by: Rosas Draper M.D. 10/16/2018 3:30 PM
--- NOTE | 2018-10-16 15:36 | CT Scan Report ---
CT lower leg LT w con CT DOSE: CLINICAL HISTORY: Left knee pain. Evaluate for hardware infection. TECHNIQUE: The patient was scanned in a dynamic helical fashion during intravenous administration of 89 cc of Optiray 320. Sagittal and coronal reformatted imaging was performed. A dose lowering techni que was utilized adhering to the principles of ALARA. COMPARISON STUDY: None. FINDINGS: There is a small joint effusion present. There is significant artifact secondary to a total left knee arthroplasty. There are no fluid collections to indicate an abscess. No fractures are visu alized. There is three-vessel runoff the level of the foot. No hardware abnormalities are visualized given the limitations of a CT scan is significant artifact from the metallic prosthesis. There is mil d soft tissue edema. IMPRESSION: 1. Postsurgical changes of a total left knee arthroplasty 2. No acute fractures 3. Small joint effusion 4. Mild soft tissue edema Electronically signed by: Rosas Draper M.D. 10/16/2018 3:35 PM
[2018-10-16 15:53] LABS: Calcium 8.5 mg/dl (8.5-10.1); Creatinine Clr Calc Pharmacy 81.4 ml/min; Est GFR (African American) 103.6; Est GFR (Non-African American) 89.4
[2018-10-16] MEDS: SODIUM CHLORIDE 0.9% 500 ML IV SCH (17:00)
[2018-10-16] MEDS: SULFAMETHOXAZOLE/TRIMETHOPRIM DS 800/160MG TAB PO SCH (20:29)
[2018-10-16] MEDS: LATANOPROST 0.005% OP SOLN 2.5 ML BTL OPB SCH (20:29)
[2018-10-16] MEDS: CETIRIZINE HCL 10 MG TABLET PO SCH (20:34)
[2018-10-17] MEDS: SODIUM CHLORIDE 0.9% 500 ML IV SCH (04:04)
[2018-10-17] MEDS: LEVOTHYROXINE SODIUM 125 MCG TABLET PO SCH (07:25)
[2018-10-17 07:55] LABS: Basophils # (auto) 0.03 K/uL (0-0.2); Basophils % (auto) 0.3 %; Eosinophils % (auto) 3.5 %; Hematocrit (blood only) 32.2 % (37-47); Hemoglobin 10.3 g/dL (12.0-16.0); Immature Granulocytes # (auto) 0.16 K/uL (0.00-0.02); Immature Granulocytes % (auto) 1.4 %; Lymphocytes # (auto) 3.79 K/uL (1.2-3.4); Lymphocytes % (auto) 32.8 %; Mean Corpuscular Volume 91.5 fL (80-100); Mean Platelet Volume 7.7 fL (7.4-10.4); Monocytes # (auto) 0.77 K/uL (0.11-0.59); Monocytes % (auto) 6.7 %; Neutrophils # (auto) 6.42 K/uL (1.4-6.5); Neutrophils % (auto) 55.3 %; Platelet Count 563 K/uL (130-400); RDW Coefficient of Variation 14.5 % (11.5-14.5); RDW Standard Deviation 47.9 fL (36.4-46.3); Red Blood Count 3.52 M/uL (4.2-5.4); White Blood Count 11.57 K/uL (4.8-10.8)
[2018-10-17] MEDS: CITALOPRAM 20 MG TAB PO SCH (08:11)
[2018-10-17] MEDS: FLUTICASONE PROPIONATE NA SPR 16 GM BTL SCH (08:12)
[2018-10-17] MEDS: ASPIRIN 81 MG ECTAB PO SCH (08:12)
[2018-10-17] MEDS: DOCUSATE SODIUM 100 MG CAP PO SCH (08:12)
[2018-10-17] MEDS: FAMOTIDINE 20 MG TAB PO SCH (08:13)
[2018-10-17] MEDS: predniSONE 20 MG TAB PO SCH (08:13)
[2018-10-17] MEDS: GABAPENTIN 600 MG TAB PO SCH ×2 (08:13→14:20)
[2018-10-17] MEDS: SULFAMETHOXAZOLE/TRIMETHOPRIM DS 800/160MG TAB PO SCH (08:14)
[2018-10-17] MEDS: BuPROPion XL 300 MG TABCR PO SCH (08:14)
[2018-10-17] MEDS: ACETAMINOPHEN 325 MG TAB PO PRN (08:15)
[2018-10-17 08:27] LABS: BUN Creatinine Ratio 12.3 (10-20); Creatinine Clr Calc Pharmacy 72.4 ml/min; Est GFR (African American) 89.7; Est GFR (Non-African American) 77.4; Potassium 3.6 mmol/L (3.5-5.1)
[2018-10-17] MEDS: OXYCODONE HCL IR 5 MG TAB (IMMEDIATE RELEASE) PO PRN (09:36)
[2018-10-17] MEDS ORDERED: FUROSEMIDE 20 MG in SYRINGE 0 ML IV ONE (10:15)
[2018-10-17 14:32] LABS: Creatinine Clr Calc Pharmacy 68.2 ml/min; Est GFR (African American) 83.3; Est GFR (Non-African American) 71.9
--- NOTE | 2018-10-17 14:47 | Hospitalist Progress Note ---
Date of Service October 17, 2018 Assessment & Plan (1) Allergic reaction: -This is a 63-year-old female who presents with allergic reaction which began after right knee cellulitis post knee arthoplasty. -presumably there may be allergic reaction from antibiotics: cephalosporin then ciprofloxacin, then clindamycin -during this hospital stay patient has been on vancomycin; however as of 10/14/18 evening patient again with more rash outbreaks and seen on the face above left eyelid; it is unclear whether rashes can be associated with antibiotics or perhaps from another reaction to different medication or whether this is idiopathic -10/15/18: facial rash is resolved but patient have some hive under the chin and of the back -rash and hives appears resolving on 10/16/18; resolved by 10/17/18 -was given in the hospitalization oral prednisone 60 mg daily, Zyrtec and Pepcid, and continue Benadryl IV 12.5 mg TID prn for rash or allergic reaction -on discharge 10/17/18 Patient has allergy medications of Benadryl and Levocetirizine electronically sent to her preferred pharmacy in [facility] Patient has bactrim at home which she can take twice a day or use the bactrim prescriptions that were electronically sent to preferred pharmacy for 5 more days Patient should see her orthopedic doctors on Thursday10/19/18 as previously arranged -Patient has follow up to see primary care clinic 10/21/2018 2:20 PM Provider Katharine Marroquin MD Department General Internal Medicine [facility] Postoperative right knee cellulitis a complication of care (CT scan of soft tissue edema, joint effusion) -patient had fever x 1 week after knee surgeries; was then on cephalosporin then ciprofloxacin, then clindamycin -on this hospitalization, patient presented with no fever and generally normal WBC; CRP elevated, ESR is normal, blood cultures from 10/14/18 with no growth to date, no draining from the surgical incision scars of bilateral knee; however bilateral knees are warm to the touch with more erythema of the right knee -was placed on IV antibiotics of vancomycin on this admission -there does not appear to be many good alternatives to oral antibiotics -will send CT scan of right and left lower extremities did not find obvious infection of surgical hardware but is soft tissue edema (which may be cellulitis) and small joint effusions; antibiotic and surgical follow up plans as listed above CT lower leg RT w con There is a joint effusion present. There is mild anterior soft tissue edema. There is significant artifact secondary to a total right knee arthroplasty. There are no fluid collections to indicate an abscess. No fractures are visualized. There is three-vessel runoff to the level of the foot. No hardware abnormalities are visualized given the limitations of a CT scan and the significant artifact from the metallic prosthesis. IMPRESSION: 1. Postsurgical changes of a total right knee arthroplasty 2. Anterior soft tissue edema 3. No acute fractures 4. Joint effusion CT lower leg LT w con FINDINGS: There is a small joint effusion present. There is significant artifact secondary to a total left knee arthroplasty. There are no fluid collections to indicate an abscess. No fractures are visualized. There is three-vessel runoff the level of the foot. No hardware abnormalities are visualized given the limitations of a CT scan is significant artifact from the metallic prosthesis. There is mild soft tissue edema. IMPRESSION: 1. Postsurgical changes of a total left knee arthroplasty 2. No acute fractures 3. Small joint effusion 4. Mild soft tissue edema hypokalemia -10/15/18 serum potassium 3.2 and patient given oral potassium -10/16/18 serum potassium is 2.9, patient given IV and oral potassium and labs to be repeated -10/17/18 serum potassium normalized History of lymphoma follicular, in remission as per patient -follow with Heme/Oncology History of hypothyroidism Continue Synthroid. History of depression Continue home medication of bupropion and citalopram DVT prophylaxis with aspirin twice daily, SCDs, ISABELLA hose while inpatient Discharge Instructions: Allergic reaction, Postoperative right knee cellulitis a complication of care (CT scan of soft tissue edema, joint effusion), Hypokalemia Subjective Rashes remain resolved. patient does not have fever. denies abdomen pain. no vomiting. no problems with ambulation. no chest pain. no shortness of breath Physical Exam Constitutional: WD/WN, vitals as above Eyes: PERRL, conjunctivae normal, anicteric sclerae EOM intact bilaterally ENMT: external ear and nose normal, oropharynx normal Neck: trachea midline, no thyromegaly Respiratory: normal respiratory effort, lungs clear to auscultation Cardiovascular: Rate/Rhythm: regular rate and regular rhythm Gastrointestinal (Abdomen): normal bowel sounds, soft, nontender, no hepatosplenomegaly Musculoskeletal: Head/Neck/Chest: normocephalic and head atraumatic Neurologic: PERRL, EOMI, accommodation nl, no face palsy, no dysarthria CN's II-XI intact bilaterally Psychiatric: A+Ox3, euthymic affect Results & Data Vital Signs (Past 12 Hours) Vital Signs Temp Pulse Pulse Resp BP BP Pulse Ox 10/17/18 14:34 36.4 C L 89 19 122/77 122/75 95 10/17/18 11:49 36.4 C L 89 19 122/77 95 10/17/18 08:11 36.7 C 76 18 150/83 H 96 10/17/18 08:00 82 10/17/18 04:00 36.5 C 76 20 144/76 H 97 (1) Allergic reaction Encounter type: subsequent encounter Qualified Code(s): T78.40XD - Allergy, unspecified, subsequent encounter
--- NOTE | 2018-10-17 14:57 | Discharge Summary ---
Date of Service October 17, 2018 Admission HPI Per Admitting Provider CHIEF COMPLAINT: Allergic reaction. HISTORY OF PRESENT ILLNESS: This is a 63-year-old female with past medical history significant for follicular lymphoma, in remission, hypothyroidism, history of chronic rhinitis, esophagitis, osteoarthritis, cervical spine degeneration, depression, who recently had bilateral knee surgery, comes with allergic reaction. The patient had bilateral total knee replacement done on September [address] Graf at orthopedic surgery in [place]. The patient was prescribed cephalosporins for right knee cellulitis and she developed rash and she was switched to Cipro. She took Cipro for 4 days and she developed again rash and lip swelling and came to the ER on October 11, she was treated with steroids, Benadryl and famotidine and ER physician talked to the orthopedic doctor and was prescribed clindamycin and Bactrim and discharged to follow with orthopedics, and she did not took Bactrim, but with couple dose of clindamycin, developed again hives on the face, neck, itching and she came to the ER today, again received Solu-Medrol, Benadryl and famotidine, symptoms are improving. Cellulitis of right knee is improving. Because of multiple allergies, IV vancomycin was started in the ER. The patient is resting comfortable and hemodynamically stable. She says since last 1 week she has subjective fevers in the nighttime, she occasionally gets night sweats. She says her lymphoma is in remission. Denies any headache, no dizziness. No blurred visions. No earache, no runny nose, no sore throat, no difficulty swallowing. No nausea, no vomiting, no abdominal pain, no chest pain, no shortness of breath. No cough. She is constipated. No blood in the stools, no black stools. No burning, micturition or hematuria. No swelling of the legs. Had some lip swelling but no swelling of the tongue. ALLERGIES: BACTRIM, CODEINE, MEPROBAMATE, OMEPRAZOLE, CEPHALOSPORIN, CIPROFLOXACIN, POSSIBLE CLINDAMYCIN. PAST MEDICAL HISTORY: As mentioned above. PAST SURGICAL HISTORY: Colonoscopy, EGD with biopsy, EGD with endoscopic ultrasound, laparoscopic biopsy of intra-abdominal lymph node, laparoscopic cholecystectomy, laparoscopic mesenteric lymph node biopsy, appendectomy, removal of ovary ducts, tonsillectomy, total abdominal hysterectomy with removal of tubes. MEDICATIONS: The patient is on latanoprost 0.005% ophthalmic solution 1 drop in each eye at bedtime, gabapentin 600 mg p.o. t.i.d., Zantac 300 mg p.o. b.i.d., meloxicam, Celexa 20 mg p.o. daily, multivitamins 1 tablet daily, levothyroxine 112 mcg daily, Wellbutrin XL 300 mg p.o. daily, albuterol nebs q. 4 hours p.r.n. FAMILY HISTORY: Significant for father has squamous cell cancer of throat, heart disorder, hypertension, stroke. Mother has diabetes, hypertension. SOCIAL HISTORY: No smoking history. Alcohol rarely. No drug use. , lives with her . REVIEW OF SYMPTOMS: As per HPI. Rest of review of systems negative Admission Exam Per Admitting Provider PHYSICAL EXAMINATION: GENERAL: The patient is of moderate build, not in acute distress. VITAL SIGNS: Temperature 37.5, pulse 91, respiratory rate 18, blood pressure ____/66, oxygen 95% room air. HEENT: No pallor, no icterus. Pupils equal, round, and reactive to light. NECK: No JVD, no neck masses, no carotid bruit. CARDIOVASCULAR: S1, S2 heard, regular rate and rhythm, no murmur, no gallop. RESPIRATORY SYSTEM: Normal AP diameter. No wheezing, no crackles. ABDOMEN: Soft, bowel sounds present. Nontender, nondistended. CENTRAL NERVOUS SYSTEM: Cranial nerves II-XII grossly nonfocal. EXTREMITIES: Bilateral total knee replacement, right knee has some mild erythematous changes. Principal Diagnosis Allergic reaction, Postoperative right knee cellulitis a complication of care (CT scan of soft tissue edema, joint effusion), Hypokalemia Discharge Exam Constitutional WD/WN, vitals as above Eyes PERRL, conjunctivae normal, anicteric sclerae EOM intact bilaterally ENMT external ear and nose normal, oropharynx normal Neck trachea midline, no thyromegaly Respiratory normal respiratory effort, lungs clear to auscultation Cardiovascular Rate/Rhythm: regular rate and regular rhythm Gastrointestinal (Abdomen) normal bowel sounds, soft, nontender, no hepatosplenomegaly Musculoskeletal Head/Neck/Chest: normocephalic and head atraumatic Neurologic PERRL, EOMI, accommodation nl, no face palsy, no dysarthria CN's II-XI intact bilaterally Psychiatric A+Ox3, euthymic affect Discharge Data Allergies Allergy/AdvReac Type Severity Reaction Status Date / Time ciprofloxacin [From Cipro] Allergy Intermediate Hives Verified 10/13/18 22:25 hydromorphone Allergy Intermediate Rash and Verified 10/13/18 22:25 itchiness meprobamate Allergy Intermediate HIVES Verified 10/13/18 22:25 omeprazole Allergy Intermediate SORES IN Verified 10/13/18 22:25 MOUTH bacitracin Allergy Unknown ITCHY, RASH Verified 10/13/18 22:25 codeine AdvReac Intermediate NAUSEA/VOMI Verified 10/13/18 22:25 TING Consultations 10/13/18 21:48 ED Decision to Admit Stat 10/13/18 22:05 ED Decision to Admit Stat 10/14/18 00:02 Consult Case Management - Discharge Planning Routine 10/14/18 08:00 Consult Infectious Diseases Routine Consult Orthopedic Surgery Routine Ordered Studies 10/16/18 14:09 CT lower leg LT w con Routine CT lower leg RT w con Routine Hospital Course (1) Allergic reaction: -This is a 63-year-old female who presents with allergic reaction which be janet after right knee cellulitis post knee arthoplasty. -presumably there may be allergic reaction from antibiotics: cephalosporin then ciprofloxacin, then clindamycin -during this hospital stay patient has been on vancomycin; however as of 10/14/18 evening patient again with more rash outbreaks and seen on the face above left eyelid; it is unclear whether rashes can be associated with antibiotics or perhaps from another reaction to different medication or whether this is idiopathic -10/15/18: facial rash is resolved but patient have some hive under the chin and of the back -rash and hives appears resolving on 10/16/18; resolved by 10/17/18 -was given in the hospitalization oral prednisone 60 mg daily, Zyrtec and Pepcid, and continue Benadryl IV 12.5 mg TID prn for rash or allergic reaction -on discharge 10/17/18 Patient has allergy medications of Benadryl and Levocetirizine electronically sent to her preferred pharmacy in [facility] Patient has bactrim at home which she can take twice a day or use the bactrim prescriptions that were electronically sent to preferred pharmacy for 5 more days Patient should see her orthopedic doctors on Thursday10/19/18 as previously arranged -Patient has follow up to see primary care clinic 10/21/2018 2:20 PM Provider Katharine Marroquin MD Department General Internal Medicine [facility] Postoperative right knee cellulitis a complication of care (CT scan of soft tissue edema, joint effusion) -patient had fever x 1 week after knee surgeries; was then on cephalosporin then ciprofloxacin, then clindamycin -on this hospitalization, patient presented with no fever and generally normal WBC; CRP elevated, ESR is normal, blood cultures from 10/14/18 with no growth to date, no draining from the surgical incision scars of bilateral knee; however bilateral knees are warm to the touch with more erythema of the right knee -was placed on IV antibiotics of vancomycin on this admission -there does not appear to be many good alternatives to oral antibiotics -will send CT scan of right and left lower extremities did not find obvious infection of surgical hardware but is soft tissue edema (which may be cellulitis) and small joint effusions; antibiotic and surgical follow up plans as listed above CT lower leg RT w con There is a joint effusion present. There is mild anterior soft tissue edema. There is significant artifact secondary to a total right knee arthroplasty. There are no fluid collections to indicate an abscess. No fractures are visualized. There is three-vessel runoff to the level of the foot. No hardware abnormalities are visualized given the limitations of a CT scan and the significant artifact from the metallic prosthesis. IMPRESSION: 1. Postsurgical changes of a total right knee arthroplasty 2. Anterior soft tissue edema 3. No acute fractures 4. Joint effusion CT lower leg LT w con FINDINGS: There is a small joint effusion present. There is significant artifact secondary to a total left knee arthroplasty. There are no fluid collections to indicate an abscess. No fractures are visualized. There is three-vessel runoff the level of the foot. No hardware abnormalities are visualized given the limi tations of a CT scan is significant artifact from the metallic prosthesis. There is mild soft tissue edema. IMPRESSION: 1. Postsurgical changes of a total left knee arthroplasty 2. No acute fractures 3. Small joint effusion 4. Mild soft tissue edema hypokalemia -10/15/18 serum potassium 3.2 and patient given oral potassium -10/16/18 serum potassium is 2.9, patient given IV and oral potassium and labs to be repeated -10/17/18 serum potassium normalized History of lymphoma follicular, in remission as per patient -follow with Heme/Oncology History of hypothyroidism Continue Synthroid. History of depression Continue home medication of bupropion and citalopram DVT prophylaxis with aspirin twice daily, SCDs, ISABELLA hodge while inpatient Discharge Instructions: Allergic reaction, Postoperative right knee cellulitis a complication of care (CT scan of soft tissue edema, joint effusion), Hypokalemia Total Time Total Time Spent Total Time Spent (In Minutes): 40 minutes Total Time Includes: Examination of the Patient, Discharge Planning, Medication Reconciliation and Communication With Other Providers Discharge Plan Discharge Items Patient Disposition: Home - Self-Care Reason For Visit: ALLERGIC REACTION Discharge Diagnosis: Allergic reaction, Postoperative right knee cellulitis a complication of care (CT scan of soft tissue edema, joint effusion), Hypokalemia Condition: Good Discharge Goals: Improve disease control Activity: Resume your previous activity Non-emergency contact: Primary Care Provider and Surgeon Call non-emergency contact if: you have any medication questions Follow-up/Referrals: Katharine Marroquin MD [Primary Care Provider] - Diet: Regular Diet Comment: Gluten Free Addtl Provider Instructions: Patient is discharged to home Patient has allergy medications of Benadryl and Levocetirizine electronically sent to her preferred pharmacy in [facility] Patient has bactrim at home which she can take twice a day or use the bactrim prescriptions that were electronically sent to preferred pharmacy for 5 more days Patient should see her orthopedic doctors on Thursday10/19/18 as previously arranged Patient has follow up to see primary care clinic 10/21/2018 2:20 PM Provider Katharine Marroquin MD Department General Internal Medicine [facility] Prescriptions: New diphenhydramine HCl [Benadryl] 25 mg Capsule 25 mg PO Q8H PRN (Reason: allergic reaction) 5 Days Qty: 15 RF: 0 levocetirizine 5 mg tablet 5 mg PO HS PRN (Reason: allergy symptoms) 5 Days Qty: 5 RF: 0 sulfamethoxazole-trimethoprim 800-160 mg Tablet 1 tab PO Q12 5 Days Qty: 10 RF: 0 Continued latanoprost 0.005 % drops 1 drp OPB HS RF: 0 albuterol sulfate 0.63 mg/3 mL Solution For Nebulization INHALATION Q4H PRN (Reason: sob/wheezing) RF: 0 gabapentin 600 mg tablet 600 mg PO TID RF: 0 ranitidine HCl 300 mg tablet 300 mg PO BID RF: 0 hydrocodone-acetaminophen 5-325 mg tablet 1 tab PO Q4H PRN (Reason: Pain) RF: 0 meloxicam 15 mg tablet 15 mg PO .HOLD PRN (Reason: Pain) RF: 0 aspirin 81 mg tablet,delayed release (DR/EC) 81 mg PO BID RF: 0 famotidine 20 mg tablet 20 mg PO BID RF: 0 levothyroxine 125 mcg tablet 125 mcg PO QAM RF: 0 albuterol sulfate [Ventolin HFA] 90 mcg/actuation Hfa Aerosol Inhaler 1 puff INHALATION Q6H PRN (Reason: Shortness Of Breath Or Wheezing) RF: 0 oxycodone 5 mg tablet 5 mg PO .Q4-6HRS PRN (Reason: Breakthrough Pain) RF: 0 bupropion HCl 300 mg tablet extended release 24 hr 300 mg PO QAM RF: 0 citalopram 20 mg tablet 20 mg PO QAM RF: 0 fluticasone propionate 50 mcg/actuation spray,suspension 2 spray intranasal DAILY RF: 0 Stand-Alone Forms: [facility] Discharge Orders: Discharge Order (Routine); Ordered 10/17/18 Ordered By: Gerardo Sepulveda Admission Data Admit Date/Time: 10/13/18 22:32 Attending Provider: Gerardo Sepulveda Admit Provider: Mauro Quinones Primary Care Provider: Katharine Marroquin Other Providers: Mauro Quinones ; Sandro Lopez ; Marcelo Wadsworth ; Jesse Vaughn ; Sae Eubanks ; Shannan Daugherty Thomas J ; Brisa Mcmahon ; Kyler Strange ; Wang Patton ; Xander Ward ; Wang Castellanos Andrew J. ; Xander Mcmanus ; Hiram Vargas ; Dawit Lind ; Tushar Stallings ; Cipriano Russo ; Shane Tee ; Yevgeniy Rg ; Guille Riddle ; Brisa Li Casey R ; Osiel Dumont ; Quinton Lloyd Service: Telemetry Medical Other Interventions: Discharge Summary Assessment (RN) Last Done: 10/17/18 14:34
== END 2018-10-17 15:31 | disposition home health service (06) | DRG 607 ==
LOC: ED 17:41 → 2N 22:32

== ENCOUNTER 2025-05-15 08:01 | Inpatient (IN) ==
--- NOTE | 2025-04-11 15:55 | PAT Medication Instructions ---
Medication Instructions Date of Service April 11, 2025 Home Medications Medication Instructions Recorded albuterol sulfate 90 mcg/actuation 1 inh inhalation QID PRN shortness 08/11/22 aerosol inhaler of breath or wheezing #8.5 grams levalbuterol HCl 0.63 mg/3 mL 0.63 mg (3 mL) inhalation TID PRN 01/22/24 solution for nebulization shortness of breath or wheezing #72 mL ondansetron 8 mg disintegrating 8 mg PO Q8H PRN nausea and 06/06/24 tablet vomiting #20 tabs famotidine 40 mg tablet 40 mg PO BID #180 tabs 07/19/24 mupirocin 2 % topical ointment 1 applic topical .COMPLEX #15 grams 08/15/24 diclofenac sodium 1 % topical gel 2 g topical DAILY PRN Knee pain 01/12/25 (Voltaren Arthritis Pain) #100 grams Medication List: aspirin 81 mg tablet,delayed release 81 mg PO QAM bupropion HCl 300 mg 24 hr tablet, extended release 300 mg PO QAM acetaminophen 500 mg tablet (Tylenol Extra Strength) 500 - 1,000 mg PO Q6H PRN Pain multivitamin 1 tab PO QAM albuterol sulfate 90 mcg/actuation aerosol inhaler 1 inh inhalation QID PRN shortness of breath or wheezing colestipol 1 g PO BID PRN Stomach Upset triamcinolone acetonide 0.1 % topical ointment 1 applic topical BID PRN Skin Irritation levalbuterol HCl 0.63 mg/3 mL solution for nebulization 0.63 mg (3 mL) inhalation TID PRN shortness of breath or wheezing duloxetine 30 mg capsule,delayed release 90 mg PO QAM ondansetron 8 mg disintegrating tablet 8 mg PO Q8H PRN nausea and vomiting famotidine 40 mg tablet 40 mg PO BID mupirocin 2 % topical ointment 1 applic topical .COMPLEX diclofenac sodium 1 % topical gel (Voltaren Arthritis Pain) 2 g topical DAILY PRN Knee pain latanoprost (PF) 0.005 % eye drops in a dropperette (Iyuzeh (PF)) 1 drp ophthalmic (eye) QPM azelastine 137 mcg (0.1 %) nasal spray 1 spray intranasal HS calcium 500 mg tablet 1,500 mg PO QAM cholecalciferol (vitamin D3) 10 mcg (400 unit) tablet (Vitamin D3) 20 mcg PO QAM fluticasone propionate 50 mcg/actuation nasal spray,suspension See Rx Instructions .Route .COMPLEX PRN rhinitis gabapentin 300 mg capsule 300 mg PO TID levothyroxine 125 mcg tablet 125 mcg PO QAM losartan 50 mg tablet 50 mg PO QAM montelukast 10 mg tablet 10 mg PO HS MEDICATION INSTRUCTIONS: Continue as directed albuterol sulfate 90 mcg/actuation aerosol inhaler 1 inh inhalation QID PRN shortness of breath or wheezing (use if needed; BRING TO HOSPITAL) triamcinolone acetonide 0.1 % topical ointment 1 applic topical BID PRN Skin Irritation (do not use after bathing prior to surgery) levalbuterol HCl 0.63 mg/3 mL solution for nebulization 0.63 mg (3 mL) inhalation TID PRN shortness of breath or wheezing mupirocin 2 % topical ointment 1 applic topical .COMPLEX (do not use after bathing prior to surgery) diclofenac sodium 1 % topical gel (Voltaren Arthritis Pain) 2 g topical DAILY PRN Knee pain (do not use after bathing prior to surgery) latanoprost (PF) 0.005 % eye drops in a dropperette (Iyuzeh (PF)) 1 drp ophthalmic (eye) QPM azelastine 137 mcg (0.1 %) nasal spray 1 spray intranasal HS fluticasone propionate 50 mcg/actuation nasal spray,suspension See Rx Instructions .Route .COMPLEX PRN rhinitis ASK your prescriber and surgeon aspirin 81 mg tablet,delayed release 81 mg PO QAM DO NOT take the morning of surgery calcium 500 mg tablet 1,500 mg PO QAM cholecalciferol (vitamin D3) 10 mcg (400 unit) tablet (Vitamin D3) 20 mcg PO QAM multivitamin 1 tab PO QAM losartan 50 mg tablet 50 mg PO QAM colestipol 1 g PO BID PRN Stomach Upset Take morning of surgery With a small sip of water, OTHERWISE NOTHING TO EAT OR DRINK AFTER MIDNIGHT: acetaminophen 500 mg tablet (Tylenol Extra Strength) 500 - 1,000 mg PO Q6H PRN Pain gabapentin 300 mg capsule 300 mg PO TID famotidine 40 mg tablet 40 mg PO BID levothyroxine 125 mcg tablet 125 mcg PO QAM bupropion HCl 300 mg 24 hr tablet, extended release 300 mg PO QAM duloxetine 30 mg capsule,delayed release 90 mg PO QAM ondansetron 8 mg disintegrating tablet 8 mg PO Q8H PRN nausea and vomiting Take evening before surgery acetaminophen 500 mg tablet (Tylenol Extra Strength) 500 - 1,000 mg PO Q6H PRN Pain gabapentin 300 mg capsule 300 mg PO TID famotidine 40 mg tablet 40 mg PO BID montelukast 10 mg tablet 10 mg PO HS colestipol 1 g PO BID PRN Stomach Upset ondansetron 8 mg disintegrating tablet 8 mg PO Q8H PRN nausea and vomiting Other Notes If you have any questions please call us at [phone] or [phone] or [phone] or [phone]
--- NOTE | 2025-04-19 12:34 | Anesthesiology Consultation ---
Date of Service April 19, 2025 Assessment & Plan (1) Encounter for pre-operative examination: Infectious disease screening: Per assessment on 04/19/25- No known recent infectious disease contacts. Patient had contact with Step son-in-law 04/13/25 who at that time had a resolving cold. No current infectious disease symptoms. Patient advised to contact surgeon/PAT if development of infectious-related symptoms prior to surgery. Nothing further needed at this time. Chart Review Chart Review: Acceptable Risk for Surgery and Patient seen in Pre Admission Testing Teaching & Discussion Pre-Anesthesia Teaching/Discussion Notes: Instructed NPO after midnight before surgery,except medications with 15 cc of water. Medication instructions provided according to the PAT guidelines. History Surgery Operation Date: 05/15/25 09:15 Proposed Procedures p Revision Left Reverse Total Shoulder Arthroplasty - Nicholas Akers DO Height/Weight Height: 5 ft 1 in Weight: 73.2 kg Allergies Allergy/AdvReac Type Severity Reaction Status Date / Time cefadroxil [From Duricef] Allergy Severe Hives Verified 04/17/25 16:27 bacitracin Allergy Intermediate Itchy, rash Verified 04/17/25 16:27 ciprofloxacin [From Cipro] Allergy Intermediate Hives Verified 04/11/25 14:42 clindamycin Allergy Intermediate Hives Verified 04/17/25 16:27 meprobamate Allergy Intermediate Hives Verified 04/17/25 16:27 nickel Allergy Intermediate Contact Verified 04/17/25 16:27 dermatitis omeprazole Allergy Intermediate Mouth sores Verified 04/17/25 16:27 codeine AdvReac Intermediate Nausea/vomi Verified 04/17/25 16:27 ting SUNSCREEN Allergy Intermediate Itchy Uncoded 04/17/25 16:27 Medications Home Medications Medication Instructions Recorded Confirmed Last Taken aspirin 81 mg tablet,delayed 81 mg PO QAM 10/11/18 04/11/25 07/03/22 release bupropion HCl 300 mg 24 hr tablet, 300 mg PO QAM 10/11/18 04/11/25 07/03/22 extended release acetaminophen 500 mg tablet 500 - 1,000 mg PO Q6H PRN Pain 01/26/20 04/11/25 Unknown (Tylenol Extra Strength) multivitamin 1 tab PO QAM 10/30/20 04/11/25 07/03/22 albuterol sulfate 90 mcg/actuation 1 inh inhalation QID PRN shortness 08/11/22 04/11/25 Unknown aerosol inhaler of breath or wheezing #8.5 grams colestipol 1 g PO BID PRN Stomach Upset 09/11/23 04/11/25 Unknown triamcinolone acetonide 0.1 % 1 applic topical BID PRN Skin 12/29/23 04/11/25 Unknown topical ointment Irritation levalbuterol HCl 0.63 mg/3 mL 0.63 mg (3 mL) inhalation TID PRN 01/22/24 04/11/25 Unknown solution for nebulization shortness of breath or wheezing #72 mL duloxetine 30 mg capsule,delayed 90 mg PO QAM 03/28/24 04/11/25 Unknown release ondansetron 8 mg disintegrating 8 mg PO Q8H PRN nausea and 06/06/24 04/11/25 Unknown tablet vomiting #20 tabs famotidine 40 mg tablet 40 mg PO BID #180 tabs 07/19/24 04/11/25 Unknown mupirocin 2 % topical ointment 1 applic topical .COMPLEX #15 grams 08/15/24 04/11/25 Unknown diclofenac sodium 1 % topical gel 2 g topical DAILY PRN Knee pain 01/12/25/10/09 Unknown (Voltaren Arthritis Pain) #100 grams latanoprost (PF) 0.005 % eye drops 1 drp ophthalmic (eye) QPM 01/12/25 04/11/25 Unknown in a dropperette (Iyuzeh (PF)) azelastine 137 mcg (0.1 %) nasal 1 spray intranasal HS 04/11/25 04/11/25 Unknown spray fluticasone propionate 50 See Rx Instructions .Route 04/11/25 04/11/25 Unknown mcg/actuation nasal .COMPLEX PRN rhinitis spray,suspension gabapentin 300 mg capsule 300 mg PO TID 04/11/25 04/11/25 Unknown levothyroxine 125 mcg tablet 125 mcg PO QAM 04/11/25 04/11/25 Unknown losartan 50 mg tablet 50 mg PO QAM 04/11/25 04/11/25 Unknown montelukast 10 mg tablet 10 mg PO HS 04/11/25 04/11/25 Unknown Calcium + Vitamin D 1 tab PO DAILY 04/19/25 04/19/25 Unknown Past Medical History Medical History Anxiety and depression Arthritis Asthma Fibromyalgia GERD (gastroesophageal reflux disease) History of COVID-19 2020- mild symptoms, resolved 01/2022- mild symptoms, resolved History of urinary incontinence "Mild" Hypertension Hypothyroidism Irritable bowel syndrome with constipation Lymphoma Hx, 13 years ago Retinal vein occlusion, branch Remote hx "years ago", left Had laser tx >1 year later, blood went into the vitreous, had to have blood removed, done in [place] No current/recent issues Sleep apnea Per patient, sleep study showed JOSE C was "mild, no device recommended" per patient Exercise / Class Metabolic Activity II 4-5 Yardwork/Stairs/Walk up hill (one FS: No CP, no SOB) Past Family History Family History (Updated 04/19/25 @ 13:35 by Mikki Moctezuma) Mother Myocardial infarction Hearing loss Bleeding disorder Father Afib Squamous cell carcinoma COPD (chronic obstructive pulmonary disease) Hypertension Stroke Brother Allergies Grandmother Allergies Grandfather (Maternal) Heart disease Grandmother (Maternal) Heart disease Aunt Heart disease Uncle Heart disease Other No family history of adverse response to anesthesia Denies family history of Ovarian cancer Prostate cancer Breast cancer Colorectal cancer Past Surgical History Surgical History H/O repair of rotator cuff Right History of appendectomy History of esophagogastroduodenoscopy (EGD) History of radiofrequency ablation (RFA) of nerve of cervical spine 09/2021, done in [place] History of reverse total replacement of left shoulder joint 2023 History of root canal procedure Hx of colonoscopy Hx of eye surgery Laser eye sx to remove scar tissue Left Vitrectomy (years ago) Hx of laparoscopy To do lymph node biopsy Hx of total hysterectomy Left ovary remains Nausea and vomiting after administration of anesthetic agent S/P cataract surgery R/L S/P cholecystectomy S/P tonsillectomy S/p total knee replacement, bilateral S/P wisdom tooth extraction Past Anesthesia History No Hx of Anesthesia Complications and No Family Hx of Anesthesia Complications History of PONV No Hx of Motion Sickness and History of PONV Social History Smoking Status: Never smoker Do You Dip or Chew Tobacco: No Hx Alcohol Use: Yes Alcohol type: wine alcohol intake frequency: holidays/special occasions only Hx Substance Use: No substance use type: does not use Review of Systems Patient denies chest pain, shortness of breath, dyspnea on exertion, fever, chills, cough, wheezing, palpitations. Physical Exam Vital Signs BP 124/82 P 83 TEMP 98.3 SP02 96%RA RESP 16 Physical Full cervical extension range of motion. Full TMJ range of motion. TMD 3 finger breaths Mallampati Score III Dentition: missing sides/molars, + crowns Lungs: clear throughout to auscultation Cardiac: regular rate and rhythm, no murmurs noted Spine: normal Carotid arteries: negative bruit Extremities: no LE edema Lab Results Anesthesia Preop Results Results Anesthesia Widget: WBC 4.64 K/ul (4.8-10.8) L 04/19/25 Hgb 13.1 g/dL (12.0-16.0) 04/19/25 Hct 38.2 % (37.0-47.0) 04/19/25 Plt 240 K/uL (130-400) 04/19/25 Na 138 mmol/L (136-145) 04/19/25 K 3.8 mmol/L (3.5-5.1) 04/19/25 Cl 103 mmol/L (98-107) 04/19/25 CO2 28 mmol/L (21-32) 04/19/25 BUN 9 mg/dl (6-23) 04/19/25 Creat 0.82 mg/dl (0.6-1.2) 04/19/25 Glucose Level 99 mg/dl (70-99(Fasting)) 04/19/25 PT 10.2 Seconds (9.0-12.0) 04/19/25 PTT 28 Seconds (21-31) 04/19/25 INR 1.0 (0.9-1.1) 04/19/25 Blood Type O Negative 04/19/25 Antibody Screen NEGATIVE 04/19/25 Testing Electrocardiogram Date: 04/19/25 SR with PACs. 80bpm. "Otherwise normal ECG" Chest X-Ray Date: 04/19/25 FINDINGS: Cholecystectomy. Left shoulder arthroplasty. Heart size is normal. The lungs appear clear. No pneumothorax, pleural effusion, airspace consolidation or pulmonary edema. Degenerative changes of the right shoulder and spine. IMPRESSION: No acute process.
[~2025-05-15 08:01] MED LIST: BUPIVACAINE 0.5 % 5 MG/1 ML PF 10ML VIAL ONE; DEXAMETHASONE SOD INJ 4 MG/ML VIAL ONE; GLYCOPYRROLATE 0.2 MG/ML VIAL ONE; LIDOCAINE 2% 2 ML VIAL/AMP(20MG/ML) INFIL ONE; MIDAZOLAM HCL 1 MG/ML 2ML VIAL ONE; ONDANSETRON INJ 2 MG/ML 2 ML VIAL ONE; PROPOFOL IV EMULSION 10 MG/ML 20 ML VIAL IV ONE; ROCURONIUM BROMIDE 10 MG/ML 5 ML VIAL IV ONE; SUGAMMADEX SODIUM 200 MG/2 ML VIAL IV ONE
[2025-05-15] MEDS: GABAPENTIN 300 MG CAP PO SCH ×2 (08:33→16:13)
[2025-05-15] MEDS: dexAMETHasone**PF** 10 MG/ML VIAL IV SCH (08:34)
[2025-05-15] MEDS: LR 15ML/HR IV SCH (08:34)
[2025-05-15] MEDS: FAMOTIDINE 20 MG TAB PO SCH (08:34)
[2025-05-15] MEDS: ACETAMINOPHEN 500 MG TAB PO SCH ×2 (08:34→15:07)
[2025-05-15] MEDS: LR 60ML/HR IV SCH (08:56)
[2025-05-15] MEDS ORDERED: ATROPINE SULFATE 0.1 MG/ML 10ML SYR IV PRN (09:03)
[2025-05-15] MEDS ORDERED: PROMETHAZINE HCL 6.25 MG in SODIUM CHLORIDE 0.9% 50 ML IV PRN (09:03)
[2025-05-15] MEDS ORDERED: ONDANSETRON INJ 2 MG/ML 2 ML VIAL IV PRN ×2 (09:03→13:50)
--- NOTE | 2025-05-15 09:04 | History & Physical Bridge Note ---
Date of Service May 15, 2025 History & Physical Bridge Note I have examined the patient, reviewed the History & Physical and in the interval since the performance of the History & Physical I have noted the following changes of clinical significance: no changes noted
[2025-05-15] MEDS: TRANEXAMIC ACID 1,000 MG **IV Pre-op IV SCH (09:26)
[2025-05-15] MEDS ORDERED: PHENYLEPHRINE HCL 10 MG/ML VIAL ONE (10:32)
[2025-05-15] MEDS: ORTHO JOINT ANESTHETIC ONE (10:57)
[2025-05-15] MEDS: ROPIV 0.5% 246mg, Ketorolac 30mg, EPINEPHrine 0.5mg in NSS INFIL SCH (11:36)
[2025-05-15] MEDS: DAKIN'S SOLN 0.5% FULL STRENGTH 473ML BTL EXT ONE (11:36)
--- NOTE | 2025-05-15 12:44 | XRay Report ---
XR shoulder LT min 2V routine CLINICAL HISTORY: Post shoulder surgery COMPARISON: None FINDINGS: Left shoulder prosthesis. No hardware complication. There is expected soft tissue gas. IMPRESSION: Unremarkable postoperative exam. ACT 112: Negative or not required by law. Electronically signed by: Lazaro Fulton M.D. 05/15/2025 12:42 PM
[2025-05-15] MEDS ORDERED: NALOXONE HCL 0.4 MG/1 ML VIAL/CARP IV PRN (13:50)
[2025-05-15] MEDS ORDERED: LEVALBUTEROL HCL 0.63 MG/3 ML NEB INH PRN (13:50)
[2025-05-15] MEDS ORDERED: diphenhydrAMINE Capsule 25 MG CAP PO PRN (13:50)
[2025-05-15] MEDS ORDERED: ALBUTEROL HFA 8 GM INHALER INH PRN (13:50)
[2025-05-15] MEDS ORDERED: HYDROmorphone INJ 0.5 MG/0.5 ML SYR IV PRN (13:50)
[2025-05-15] MEDS ORDERED: MAGNESIUM HYDROXIDE SUSP 30 ML UDC PO PRN (13:50)
[2025-05-15] MEDS ORDERED: METOCLOPRAMIDE HCL INJ 5 MG/ML 2 ML VIAL IV PRN (13:50)
[2025-05-15] MEDS: BUPIVACAINE LIPOSOME 1.3% 133 MG/10 ML VIAL ONE (13:58)
[2025-05-15] MEDS: SODIUM CHLORIDE 0.9% 1,000 ML IV SCH (14:03)
--- NOTE | 2025-05-15 14:16 | Anesthesiology Progress Note ---
Date of Service May 15, 2025 Anesthesia Post Procedure Vital Signs Vital Signs: Temp Pulse Pulse Pulse Resp BP Pulse Ox 05/15/25 13:50 36.3 C L 103 H 18 122/77 96 05/15/25 13:25 36.4 C L 103 H 14 139/77 96 05/15/25 13:15 104 H 16 141/78 H 97 05/15/25 13:05 108 H 14 134/72 96 05/15/25 12:55 99 H 14 133/73 95 05/15/25 12:45 97 H 14 133/64 97 05/15/25 12:35 95 H 14 144/76 H 100 05/15/25 12:25 96 H 12 126/53 L 100 05/15/25 12:15 36.0 C L 85 10 L 144/75 H 100 05/15/25 08:24 36.5 C 95 H 20 134/102 H 96 O2 Del Method O2 Flow Rate 05/15/25 13:50 Room Air 05/15/25 13:25 Room Air 05/15/25 13:15 Room Air 05/15/25 13:05 Room Air 05/15/25 12:55 Room Air 05/15/25 12:45 Oxymask 3 05/15/25 12:35 Oxymask 4 05/15/25 12:25 Oxymask 4 05/15/25 12:15 Oxymask 6 05/15/25 08:24 Room Air Transfer of Care Handoff Completed per policy Notes Mental Status: alert / awake / arousable Patient Amnestic to Procedure: Yes Nausea / Vomiting: adequately controlled Pain: adequately controlled Airway Patency, RR, SpO2: stable & adequate BP & HR: stable & adequate Hydration State: stable & adequate Anesthetic Complications: no major complications apparent
--- NOTE | 2025-05-15 14:34 | Operative Report ---
PG Post Operative Report Pre & Post Diagnosis Operation Date: 05/15/25 10:00 Pre-Op Diagnosis: Aseptic loosening left reverse shoulder replacement Post-Op Diagnosis: Aseptic loosening left reverse shoulder replacement I identified the patient and participated in the time-out.: Yes Procedure Operation Date: 05/15/25 10:00 Actual Procedures p Left Revision left reverse shoulder replacement of both humeral and glenoid components. (Left) - Nicholas Akers DO Surgeon Nicholas Akers DO Glue Machine Operator Ole Montoya PA-C Estimated Blood Loss 200 Findings Consistent with Post-Op Diagnosis Specimens 5 frozen sections Description of Procedure Implants used: I used a Biomet Comprehensive reverse total shoulder arthroplasty system with a size 12 press fit micro humeral stem, a +6 offset humeral tray and a +3 retentive humeral bearing, a 25 mm small augment baseplate with a 6.5 mm central screw and superior and inferior locking screws, and a size 36 mm eccentric glenosphere. Yary arrived at [facility] for the above procedure. He was seen in the preoperative holding area and the operative extremity was identified and signed. He was given a preoperative antibiotic, TXA, and an interscalene nerve block. He was taken back to the operating room, laid on table in supine position, and put under general anesthesia. He was then put into the beachchair position. The shoulder was then prepped and draped in sterile fashion. A timeout was done and the patient and the operative extremity was properly identified. A deltopectoral approach was used. The prior incision was used. The incision was opened up and dissection was taken down between the deltoid and the pectoralis. The deltoid was then retracted laterally and the conjoined tendon was retracted medially. The subscapularis was identified. The subscapularis was then elevated off of the lesser tuberosity. It was then tagged with 2 tag sutures. A little bit of the supraspinatus was teased back. There was no signs of infection within the joint. There was normal synovial fluid. The shoulder was then dislocated and the humeral tray was removed. 5 different tissue samples were obtained and sent to the pathologist for frozen section. All 5 tissue cultures came back with no evidence of infection. The glenosphere was inspected. The glenosphere was loose. It appeared the whole baseplate was loose. The glenosphere was then removed and the baseplate was found to be grossly loose. All screws were removed and the baseplate was then removed. At this point I decided to convert it to a Biomet reverse shoulder replacement. A 25 mm small augment glenoid baseplate was then reamed and impacted into place. A single central screw was placed followed by superior and inferior locking screws. A 36 mm eccentric glenosphere was then impacted into place. The proximal humerus was then exposed. The prior humeral implant was removed using osteotomes around the periphery. The proximal humerus was then extracted. Sequential reaming up to a size 12 mm reamer was done. Sequential broaching up to a size 12 broach was done. A +6 offset humeral tray with a +3 retentive bearing was then attached to the humeral stem. The shoulder was reduced. The shoulder is brought through full range of motion and felt to be stable. The proximal humerus was then dislocated out. The broach was then removed. The final size 12 humeral implant was then impacted into place. The final +3 retentive humeral bearing was then snapped onto a +6 offset humeral tray. The tray was then impacted onto the humeral stem. The shoulder was then reduced. The shoulder was brought through full range of motion and felt to be stable. Two #5 FiberWire's were passed around the proximal humerus to prevent any cracking of the greater tuberosity. Final hemostasis was obtained. The entire joint was then irrigated with 3 L of normal saline solution. A 3-minute Irrisept lavage was then done. The joint was once again irrigated. The deltopectoral interval was closed with 2-0 Vicryl suture. Skin was closed with 3-0 Vicryl and a [place] Zipline. She was then placed in a soft dressing and a regular arm sling. She was then extubated and transferred to a [facility]. She was taken to the postanesthesia care unit in stable condition. She tolerated the procedure well. Ole Montoya PA-C, was present for the entire procedure. He was critical for patient positioning, prepping, draping, retraction exposure, wound closure and application of sterile dressing. I attest to the content of the Intraoperative Record and any orders documented therein. Any exceptions are noted below.
[2025-05-15] MEDS: KETOROLAC TROMETHAMINE 15 MG/ML VIAL IV SCH (15:07)
[2025-05-15] MEDS: ASPIRIN 81 MG ECTAB PO SCH (21:00)
[2025-05-15] MEDS: LATANOPROST 0.005% OP SOLN 2.5 ML BTL OP SCH (21:00)
[2025-05-15] MEDS: SENNA 8.6 MG TAB PO SCH (21:01)
[2025-05-15] MEDS: MONTELUKAST SODIUM 10 MG TABLET PO SCH (21:01)
[2025-05-15] MEDS: FAMOTIDINE 40 MG TABLET PO SCH (21:01)
[2025-05-15] MEDS: DOCUSATE SODIUM 100 MG CAP PO SCH (21:01)
[2025-05-16] MEDS: LEVOTHYROXINE SODIUM 125 MCG TABLET PO SCH (05:54)
--- NOTE | 2025-05-16 08:01 | Orthopedic Progress Note ---
Date of Service May 16, 2025 Assessment & Plan (1) History of revision of total shoulder arthroplasty: (2) Status post reverse total arthroplasty of left shoulder: Plan * Continue Current Treatment * Disposition: home * Daily treatment: Physical Therapy/ Occupational Therapy per protocol * Weight bearing status: NWB LUE * Continue to monitor for ABLA * Pain control * DVT prophylaxis in hospital * Office/hospital f/u 2 weeks for progress check and staple/suture removal * Plan for discharge today pending PT/OT clearance Subjective . Active Problems: S/p left revision rTSA POD 1 70 y/o female s/p left revision rTSA. Doing well overall, pain managed and improved function. Denies fever/chills, chest pain/SOB, nausea/vomiting. Otherwise no complaints. Review of Systems All systems reviewed & are unremarkable except as noted in HPI & below. Physical Exam . * General: Alert and oriented, no acute distress * Constitutional: well-developed, well-nourished. * Respiratory: Normal respiratory effort, no distress * Gastrointestinal: No tenderness to palpation, no rigidity or guarding. * Skin: No rash or lesion. * Neurologic: Grossly normal * Musculoskeletal: left shoulder surgical dressing CDI, not removed for exam. Otherwise no obvious deformity or overlying skin changes. Diffuse TTP upper arm and shoulder region. Otherwise no specific tenderness of upper arm, elbow, forearm, wrist/hand. AROM shoulder not assessed. AROM elbow, wrist/hand intact. Sensation intact radial/median/ulnar nerve distributions. Brisk cap illary refill. Results & Data Results & Data Laboratory Results . Diagnostic Findings . Shoulder X-Ray 05/15/25 12:18 XR shoulder LT min 2V routine CLINICAL HISTORY: Post shoulder surgery COMPARISON: None FINDINGS: Left shoulder prosthesis. No hardware complication. There is expected soft tissue gas. IMPRESSION: Unremarkable postoperative exam. ACT 112: Negative or not required by law. Electronically signed by: Lazaro Fulton M.D. 05/15/2025 12:42 PM PG Care Time/CCT Total # of Minutes Spent Total Time Spent with Patient: Total time spent is greater than 50% in coordination of care (as documented) at patient's floor/unit and/or counseling patient: Coding Level of Care Code 47941 Post Operative Follow-Up Diagnoses History of revision of total shoulder arthroplasty Z96.619 Status post reverse total arthroplasty of left shoulder Z96.612
[2025-05-16] MEDS ORDERED: ASPIRIN 81 MG ECTAB PO SCH (09:00)
[2025-05-16] MEDS: MULTIVITAMIN TAB PO SCH (09:41)
[2025-05-16] MEDS: LOSARTAN POTASSIUM 50 MG TAB PO SCH (09:42)
[2025-05-16 14:05] VITALS: TEMP 98.1
[2025-05-16 15:45] VITALS: BP 124/73; PULSE 89; RESP 18; O2SAT 93
== END 2025-05-16 16:10 | disposition home or self-care (01) | DRG 483 ==
LOC: ASU 08:01 → 3W 12:18